=== PATIENT | female | born 1965 | race Caucasian/White ===

== ENCOUNTER → 2017-08-20 | Outpatient (CLI) | payer OTHER ==
[~2017-08-20] MED LIST: AMBIEN10 M1 PO; AMBIEN10 MG PO; ATIVAN1 MG PO; BACTRIM DS 8001 TA1 PO; BENADRYL25 MG PO; CIPRO500 MG PO; CYMBALTA60 MG PO; DOXYCYCLINE100 M3 PO; FEOSOL325 MG PO; LAMICTAL ODT50 MG PO; LAMICTAL25 MG PO; LAMOTRIGINE25 M1 PO; NORFLEX100 MG PO; PERCOCET 325 MG1 TA2 PO; PHENERGAN25 M3 PO; POTASSIUM CHLO20 ME3 PO; SEPTRA DS 800 M1 TAB PO; SEROQUEL300 MG PO; SEROQUEL400 MG PO; SUBOXONE 2 MG-01 TA1 SL; TIZANIDINE HCL4 MG PO; TORADOL10 MG PO
[2017-08-21 08:11] LABS: ESTRADIOL 87.4 pg/mL (.); FOLLICLE STIMULATING HORMONE 6.3 mIU/mL (.)
== END | disposition home or self-care (01) ==
LOC: LAB 11:47
PROVIDERS: Obstetrics & Gynecology
DX: Z12.12 Encounter for screening for malignant neoplasm of rectum (principal); N95.1 Menopausal and female climacteric states

== ENCOUNTER 2017-12-22 10:02 | Inpatient (IN) | payer OTHER ==
[~2017-12-22] VITALS: Ht 160 cm; Wt 66.7 kg
--- NOTE | ~2017-12-22 | PR ---
[place], [place] PROGRESS NOTE [id number] UNIT #: [id number] ROOM: 427 DOCTOR: MILLI WILSON MD,ADOLFO BIRTHDATE: [birth year] DOS: 12/24/2017 SUBJECTIVE: The patient was noted comfortable today. The IV access was established on the patient yesterday. She has been still noted with pain described in the chest. Denies symptoms of hemoptysis. Denies any symptoms of abdominal pain, nausea, vomiting, headache, or diarrhea. The withdrawal symptoms in the patient from the narcotics seemed to be better today. The remaining systems were reviewed of the patient, they were noted all negative. OBJECTIVE: VITAL SIGNS: Temperature remains normal, previous noted 99 degrees Fahrenheit early on 12/23/2017. respiratory 20-22, heart rate of 114-107 with sinus tachycardia, blood pressure 103/53-120/56. Pulse oxygen saturation of the patient noted on nasal cannula was 98% saturation. HEENT: Head was atraumatic. Eyes nonicterus. NECK: Supple. CARDIOVASCULAR: S1, S2 audible. LUNGS: Decreased breath sounds in the patient's left chest. Remaining lungs were noted clear. There was no wheezing. ABDOMEN: Flat, soft, nontender. EXTREMITIES: Without any acute edema. CENTRAL NERVOUS SYSTEM: No focal deficit. Cranial nerves 2-12 intact. MUSCULOSKELETAL: Without any acute deformities. LABORATORY DATA: CMP today, glucose 104, BUN normal, creatinine was normal. Phosphorus 1.9. CBC of this morning, WBC count 21.8, hemoglobin 9.4, hematocrit 28.8, platelet count 414,000, 95% segmented neutrophils. PH of the patient's pleural fluid, which was removed today was 6.63. The cell count differential of the patient noted with WBC count of 6396, 6000 RBCs, 93% segmented neutrophils. Chemistry, glucose noted less than 1, protein 4.5, LDH of 944. Cholesterol of 87. Triglyceride of 43. Albumin 1.7. IMAGING STUDIES: The echocardiogram that was done today on this patient was reviewed and dictated by Dr. Johnson. Echocardiogram of the patient described with left ventricular ejection fraction 60-65%. 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 Trace mitral regurgitation was also reported. There was no evidence of vegetation described. SHAAN was suggested for the patient for further assessment. IMPRESSION: 1. The patient who has been currently noted with findings suggestive of severe complicated pleural fluid, possibility of empyema would be considered. The patient has acute pneumonia involving the left side. 2. 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 3. Past history of nicotine use. 4. History of narcotic medication dependence as well. 5. Anemia of chronic disease. 6. Leukocytosis secondary to empyema or pneumonia. [place], [place] PROGRESS NOTE NAME: DIONY CHASE UNIT #: [id number] ROOM: 427 DOCTOR: ADOLFO TESFAYE MD BIRTHDATE: [birth year] PLAN OF MANAGEMENT: The patient has been currently getting IV Levaquin that will be continued. Continuation of bronchodilator. Thoracentesis completed with over 900 mL of cloudy fluid drained from the pleural space with pending Gram stain and culture. The patient will be transferred to another hospital for further medical management of the patient for the current loculated pleural fluid, suspected empyema with complicated pleural fluid. Continuation of the pain medication of the patient especially non-narcotics. Continuation of bronchodilators and oxygen supplementation and other therapies as in progress. The patient was agreeable for the transfer to another facility. The primary care attending of the patient has been contacted. I did speak with the Thoracic Surgery staff at [facility] for this patient's surgical intervention. He was agreeable to the admission to [facility] and to perform the surgery for the patient. Further workup of the patient's current abnormal aortic valve assessment needs to be done with the transesophageal echocardiogram to rule out fibroelastoma and other. Other supportive therapy, plan of management. No other changes immediately in the treatment will be needed at the present time. Past, family, and social history of the patient reviewed from the previous note remains unchanged. Review of systems of the patient essentially noted negative other than specified in the history of present illness. ADOLFO MORLEY MD CM:PNTRANS [id number] ADOLFO WILSON MD 12/25/17 0015 interface
--- NOTE | ~2017-12-22 | CON ---
[place], [place] RE[facility] CON[facility]ULTATION [id number] UNIT #: [id number] ROOM: 427 DOCTOR: MILLI WILSON MDADOLFO BIRTHDATE: [birth year] DOS: 12/23/2017 PULMONARY CONSULTATION, EVALUATION AND MANAGEMENT CONSULTATION REQUESTED BY: Hospitalist services. REASON FOR CONSULTATION: Consultation done for assessment of the current left pleural fluid and the chest pain. HISTORY OF PRESENT ILLNESS: This is a 52-year-old female who has been admitted to the hospital for the detoxification program in the [facility]. The patient reported with significant symptoms of withdrawal occurring yesterday. She has been hospitalized, also complaining of pain in the right side of the chest. The patient has been noted he has a longstanding heroin use. The last time she has used the heroin, reported snorting last Thursday. The patient is currently noted complaining of pain. She apparently appeared to have lost significant weight. The patient was known to me from the previous assessment. She does have some symptoms of coughing, which was noted nonproductive. Chest pain is described moderate to severe nonradiating in the left side of the chest for the past few days. The patient denies symptoms of hemoptysis with that. Denies symptoms of wheezing. REVIEW OF SYSTEMS: CONSTITUTIONAL: Fatigue and tiredness reported. She was not sure about symptoms of fever or chills. EYES: Denies any burning, redness, discharge or pain. EARS, NOSE, AND THROAT: Denies sore throat, hoarseness, otalgia, postnasal drainage or epistaxis. CARDIOVASCULAR: Denies anginal pain, edema, pain of the lower extremities. GASTROINTESTINAL: Denies dysphagia, nausea, vomiting, diarrhea, abdominal pain, hematemesis, melena, or hematochezia. GENITOURINARY: Denies symptoms of dysphagia. The patient lost about 40 pounds of body weight in the past several weeks. MUSCULOSKELETAL: Aches and pain described, most likely related to current withdrawal from the heroin dependence. CENTRAL NERVOUS SYSTEM: Denies any focal neurologic deficit. Denies symptoms of diplopia, headache or migraine headache. History of seizures known previously, but no active seizure reported in the last few days. Remaining systems were reviewed. They were noted all negative. PAST MEDICAL HISTORY: 1. Noted with chronic alcohol dependency. The patient previously used heroin with multiple abscesses of the skin, which has been treated with I and D, currently noted snorting heroin. 2. History of hepatitis C. 3. Past history of seizure reported previously as well. 4. History of anemia of chronic disease. PAST SURGICAL HISTORY: [place], [place] REPORT OF CONSULTATION NAME: DIONY CHASE UNIT #: [id number] ROOM: 427 DOCTOR: ADOLFO TESFAYE MD BIRTHDATE: [birth year] 1. Tubal ligation. 2. Bibi-en-Y bypass surgery several years ago. 3. History of cholecystectomy. 4. I and D of skin abscesses in the past. SOCIAL HISTORY: The patient was denying any tobacco use or alcohol use. The patient has been noted dependence on the narcotic medication in the form of heroin. FAMILY HISTORY: The patient's father passed of complication related lung cancer. Mother with history of lymphoma. HOME MEDICATIONS: The patient reported use of Ambien, Zanaflex and Seroquel. DRUG ALLERGIES: No known drug allergies. PHYSICAL EXAMINATION: GENERAL: This is a 52-year-old female who has been currently noted at this time with signs of withdrawal and distress from the past heroin use. Height of 5 feet 3 inches, weight 147, BMI 26. VITAL SIGNS: The temperature 99.4 degree Fahrenheit, normal temperature, respiratory rate 20, heart rate of 100-97, blood pressure 136/100-110/68. Pulse oxygen saturation on room air was 98% saturation. HEENT: Head was atraumatic. Oral mucosa was moist. NECK: Supple. CARDIOVASCULAR: S1, S2 is audible. LUNGS: Noted without any wheezing. Decreased breath sounds and absent breath sounds in the left lower chest. ABDOMEN: Soft, flat, nontender. EXTREMITIES: Without any edema, clubbing, cyanosis or any obvious abscesses or rashes. MUSCULOSKELETAL: No deformities. CENTRAL NERVOUS SYSTEM: Noted nonfocal and intact. VISIBLE SKIN: No lesions or rashes or ulcers. LABORATORY DATA: CBC that was done yesterday on admission, WBC count 12.6, hemoglobin 9.2, hematocrit 28.6, platelet count 439,000. PT/PTT yesterday were noted as normal. CMP yesterday on admission, potassium 2.8. Remaining electrolytes normal. The liver function tests normal except albumin 2.3. The CMP of this morning repeated was noted with potassium of 2.9, BUN and creatinine remains normal. Albumin remains low. CBC this morning, WBC count 19.5, hemoglobin 10.2, hematocrit 31.0, platelet count 442,000, 94% segmented neutrophils. Lactic acid was 1.2. C-reactive protein was severely elevated 25.50. ESR noted as 92. The chest x-ray was noted with a moderate-sized left pleural fluid was also noted. CT scan of the chest, which was done without contrast was personally reviewed for this patient shows moderate-sized left pleural fluid noted with area of compression atelectasis, possibility of infiltration was also considered. Right lung was noted discoid atelectasis in the right lung base. There was no cross visible lymphadenopathy, but the lack of the IV contrast does limit the mediastinal assessment. [place], [place] REPORT OF CONSULTATION NAME: DIONY CHASE UNIT #: [id number] ROOM: 427 DOCTOR: KRISTA TESFAYE MDM BIRTHDATE: [birth year] IMPRESSION: 1. The patient has been currently admitted to the hospital noted withdrawal from the past heroin use. Also noted current pleural fluid with weight loss and leukocytosis. The etiology of the patient to be considered as acute pneumonia with the pleural fluid related to that versus rule out malignancy as well in the differential diagnosis. 2. The patient was noted poor peripheral venous access at this time and tried to be established an intravenous line at this time by the nursing staff. 3. History of chronic dependence heroin, possibly to aspiration resulting in current pneumonia cannot be excluded. 4. History of hepatitis C as well. PLAN OF MANAGEMENT: At this time, the patient would be continued on the antibiotic for community-acquired pneumonia. Blood culture to be obtained for this patient as soon as the intravenous line was established. Thoracentesis will be done in the first step for sampling of the pleural fluid for this patient initially. Depending on the analysis of pleural fluid, further determination will be done. New intervention if necessary including consideration for video-assisted thoracoscopy. Medical management of withdrawal from the heroin and narcotic will be continued under the [facility] for the patient has already been done by the primary care attending. Usual care. All other supportive therapy, plan of management and care. Further change in treatment will be done based on progression of the illness. Thanks for allowing me to participate in the care of this patient. ADOLFO MORLEY MD CM:CONSTR:REPORT OF CONSULTATION [id number] 12/24/17 0506 interface
--- NOTE | ~2017-12-22 | PROC NOTE ---
[place], [place] PROCEDURE NOTE NAME: DIONY CHASE UNIT #: [id number] ROOM: 427 DOCTOR: MILLI WILSON MD,ADOLFO BIRTHDATE: [birth year] DOS: 12/24/2017 PREOPERATIVE DIAGNOSIS: The patient with multiloculated pleural fluid. POSTOPERATIVE DIAGNOSIS: Removal of about 900 mL of cloudy pleural fluid, cloudy pleural fluid for the patient was removed. PROCEDURE: Thoracentesis and outpatient ultrasound guidance. PROCEDURE DESCRIPTION: Informed consent obtained. Ultrasound of the chest was personally performed, multiloculated pleural fluid was noted, large pocket of fluid was identified in right posterior lower chest wall port site of thoracentesis. Skin was cleaned with chlorhexidine solution. 1% lidocaine was administered in the skin and intercostal space. During administration of local anesthetic, a small amount of fluid was aspirated. After that small incision given in the skin, [place] thoracentesis catheter introduced through the incision into the left pleural space without any difficulty. A total of 900 mL of pleural fluid was obtained for the patient, which was sent to all the necessary testing including for the pH assessment. The procedure was well tolerated by the patient without any complication. The chest x-ray of the patient that was performed post-procedure was reviewed as well. Persistent loculated pleural fluid for the patient with incomplete re-expansion of the lung. There was no evidence of pneumothorax. The finding is not unexpected for this patient at this time based on the current pleural fluid analysis. ADOLFO MORLEY MD CM:PROCNOTE:PROCEDURE NOTE [phone] ADOLFO WILSON MD
[2017-12-22] MEDS ORDERED: VISTARIL50 MG PO (10:44)
[2017-12-22] MEDS ORDERED: ZANAFLEX4 M1 PO (10:45)
[2017-12-22] MEDS ORDERED: SEROQUEL400 M1 PO (10:46)
[2017-12-22 10:50] VITALS: BP 124/74
[2017-12-22] MEDS ORDERED: AMBIEN10 M1 PO (10:57)
[2017-12-22 11:07] VITALS: BP 124/74
[2017-12-22 11:59] LABS: BASO % 0.2 % (0.0-1.0); EOS # 0.1 10*3/uL (0.0-0.4); EOS % 1.1 % (1.0-4.0); HEMATOCRIT 28.6 % (37.0-47.0); HEMOGLOBIN 9.2 g/dl (12.0-16.0); LYMPH # 0.8 10*3/uL (1.3-4.4); LYMPH % 6.4 % (27.0-41.0); MEAN CELL VOLUME 82.4 fl (81.0-99.0); MEAN CORPUSCULAR HGB 26.5 pg (27.0-31.0); MEAN CORPUSCULAR HGB CONC 32.2 g/dl (33.0-37.0); MEAN PLATELET VOLUME 8.8 fl (9.6-12.3); MONO # 0.5 10*3/uL (0.1-1.0); MONO % 4.1 % (3.0-9.0); NEUT % 87.9 % (47.0-73.0); PLATELET COUNT AUTOMATED 439 10*3/uL (130-400); RED BLOOD COUNT 3.47 10*6/uL (4.10-5.10); RED CELL DISTRI WIDTH 13.3 % (0-14.5); RETICULOCYTE % 1.39 % (0.50-2.50); WHITE BLOOD COUNT 12.6 10*3/uL (4.8-10.8)
[2017-12-22 12:06] LABS: ACT PARTIAL THROMBO TIME 29.5 SECONDS (20.8-31.5)
[2017-12-22 12:19] LABS: ALBUMIN 2.3 gm/dl (3.1-4.5); ALKALINE PHOSPHATASE 65 U/L (45-117); BUN 13 mg/dl (7-24); CHLORIDE 104 mmol/L (98-107); CREATININE 0.66 mg/dL (0.55-1.02); IRON 13 ug/dL (50-170); PHOSPHOROUS 2.8 mg/dL (2.5-4.9); POTASSIUM 2.8 mmol/L (3.5-5.1); SGOT/AST 7 IU/L (3-35); SGPT/ALT 10 U/L (12-78); SODIUM 140 mmol/L (136-145); TOTAL PROTEIN 7.1 gm/dL (6.4-8.2)
[2017-12-22 12:24] LABS: THYROID STIM HORMONE (HS) 0.262 uIU/ml (0.358-4.75); TOTAL IRON BINDING CAPACITY 214 ug/dl (250-450)
[2017-12-22 13:03] LABS: FERRITIN 75.6 ng/mL (10.0-291.0)
[2017-12-22 13:37] LABS: VITAMIN D, 25-HYDROXY 4.6 ng/mL (30-100)
[2017-12-22 16:00] VITALS: BP 108/57
[2017-12-22 20:00] VITALS: BP 136/100
[2017-12-22 20:15] VITALS: BP 136/86
[2017-12-23] VITALS: BP 106/46
[2017-12-23 04:00] VITALS: BP 106/68
[2017-12-23 06:58] LABS: HEMOGLOBIN 10.2 g/dl (12.0-16.0); MEAN CELL VOLUME 82.4 fl (81.0-99.0); MEAN CORPUSCULAR HGB 27.1 pg (27.0-31.0); MEAN CORPUSCULAR HGB CONC 32.9 g/dl (33.0-37.0); MEAN PLATELET VOLUME 8.9 fl (9.6-12.3); PLATELET COUNT AUTOMATED 442 10*3/uL (130-400); RED BLOOD COUNT 3.76 10*6/uL (4.10-5.10); RED CELL DISTRI WIDTH 13.5 % (0-14.5); WHITE BLOOD COUNT 19.5 10*3/uL (4.8-10.8)
[2017-12-23 07:15] LABS: BUN 11 mg/dl (7-24); CHLORIDE 102 mmol/L (98-107); CHOLESTEROL 131 mg/dL (<200); CREATININE 0.67 mg/dL (0.55-1.02); POTASSIUM 2.9 mmol/L (3.5-5.1); SGOT/AST 6 IU/L (3-35); SGPT/ALT 7 U/L (12-78); SODIUM 137 mmol/L (136-145); TOTAL PROTEIN 6.6 gm/dL (6.4-8.2); TRIGLYCERIDES 74 mg/dl (<150); VLDL CHOLESTEROL 15 mg/dL (6-40)
[2017-12-23 07:16] LABS: ALKALINE PHOSPHATASE 61 U/L (45-117); HDL CHOLESTEROL 38 mg/dl (40-60); LDL CHOLESTEROL 78 mg/dL (9-159)
[2017-12-23 07:41] LABS: TOTAL CELLS COUNTED 100 #CELLS
[2017-12-23 07:42] LABS: BURR CELLS FEW; PLATELET SUFFICIENCY HIGH (NORMAL); POLYCHROMASIA SLIGHT
[2017-12-23 07:44] VITALS: BP 110/68
[2017-12-23 12:01] VITALS: BP 112/78
[2017-12-23 16:00] VITALS: BP 116/45
[2017-12-23 20:00] VITALS: BP 125/65
[2017-12-24] VITALS: BP 103/53
[2017-12-24 06:39] LABS: HEMATOCRIT 28.8 % (37.0-47.0); HEMOGLOBIN 9.4 g/dl (12.0-16.0); MEAN CELL VOLUME 83.5 fl (81.0-99.0); MEAN CORPUSCULAR HGB 27.2 pg (27.0-31.0); MEAN CORPUSCULAR HGB CONC 32.6 g/dl (33.0-37.0); PLATELET COUNT AUTOMATED 414 10*3/uL (130-400); RED BLOOD COUNT 3.45 10*6/uL (4.10-5.10); RED CELL DISTRI WIDTH 13.9 % (0-14.5); WHITE BLOOD COUNT 21.8 10*3/uL (4.8-10.8)
[2017-12-24 06:59] LABS: ALBUMIN 1.7 gm/dl (3.1-4.5); BUN 10 mg/dl (7-24); CHLORIDE 104 mmol/L (98-107); POTASSIUM 3.8 mmol/L (3.5-5.1); SODIUM 138 mmol/L (136-145)
[2017-12-24 07:02] LABS: ALKALINE PHOSPHATASE 83 U/L (45-117); CREATININE 0.67 mg/dL (0.55-1.02); PHOSPHOROUS 1.9 mg/dL (2.5-4.9); SGOT/AST 8 IU/L (3-35); SGPT/ALT 9 U/L (12-78); TOTAL PROTEIN 5.9 gm/dL (6.4-8.2)
[2017-12-24 07:27] LABS: BASOPHILS 1 % (0-1); PLATELET SUFFICIENCY NORMAL (NORMAL); POLYCHROMASIA SLIGHT; TOTAL CELLS COUNTED 100 #CELLS
[2017-12-24 08:00] VITALS: BP 128/56
[2017-12-24 11:26] LABS: BODY FLUID WBC 6396 /uL
[2017-12-24 11:27] LABS: BF LYMPHOCYTES 1 %; BF MACROPHAGES 5 %; BF NEUTROPHILS 93 %
[2017-12-24 12:00] VITALS: BP 110/50
[2017-12-24 16:00] VITALS: BP 112/48
== END 2017-12-24 18:34 | disposition short-term general hospital (02) | DRG 871 ==
LOC: 4E 10:02
PROVIDERS: Internal Medicine Critical Care Medicine; Registered Nurse
PROC: 0W9B3ZZ Drainage of Left Pleural Cavity, Percutaneous Approach (ICD-10-PCS; principal; 2017-12-24)
DX: A41.9 Sepsis, unspecified organism (principal); E43 Unspecified severe protein-calorie malnutrition; J96.01 Acute respiratory failure with hypoxia; J90 Pleural effusion, not elsewhere classified; J18.9 Pneumonia, unspecified organism; F11.23 Opioid dependence with withdrawal; D50.9 Iron deficiency anemia, unspecified; R65.20 Severe sepsis without septic shock; E87.6 Hypokalemia; E83.51 Hypocalcemia; R73.9 Hyperglycemia, unspecified; D63.8 Anemia in other chronic diseases classified elsewhere; F41.9 Anxiety disorder, unspecified; F32.9 Major depressive disorder, single episode, unspecified; Z87.891 Personal history of nicotine dependence; Z86.19 Personal history of other infectious and parasitic diseases; Z85.118 Personal history of other malignant neoplasm of bronchus and lung; Z85.72 Personal history of non-Hodgkin lymphomas; Z79.899 Other long term (current) drug therapy; Z98.51 Tubal ligation status; Z90.49 Acquired absence of other specified parts of digestive tract; Z68.26 Body mass index [BMI] 26.0-26.9, adult

== ENCOUNTER 2018-01-13 07:54 | Emergency (ER) | payer OTHER ==
[~2018-01-13] VITALS: Wt 65.3 kg
[~2018-01-13 07:54] MED LIST changes: +SEROQUEL400 M1 PO; +VISTARIL50 MG PO; +ZANAFLEX4 M1 PO
[2018-01-13 08:37] LABS: BASO % 0.5 % (0.0-1.0); EOS # 0.3 10*3/uL (0.0-0.4); EOS % 3.9 % (1.0-4.0); HEMATOCRIT 29.6 % (37.0-47.0); HEMOGLOBIN 9.1 g/dl (12.0-16.0); LYMPH # 1.7 10*3/uL (1.3-4.4); LYMPH % 21.1 % (27.0-41.0); MEAN CELL VOLUME 85.5 fl (81.0-99.0); MEAN CORPUSCULAR HGB 26.3 pg (27.0-31.0); MEAN CORPUSCULAR HGB CONC 30.7 g/dl (33.0-37.0); MEAN PLATELET VOLUME 9.5 fl (9.6-12.3); MONO # 0.5 10*3/uL (0.1-1.0); MONO % 6.3 % (3.0-9.0); NEUT # 5.4 10*3/uL (2.3-7.9); NEUT % 67.8 % (47.0-73.0); PLATELET COUNT AUTOMATED 541 10*3/uL (130-400); RED BLOOD COUNT 3.46 10*6/uL (4.10-5.10); RED CELL DISTRI WIDTH 15.2 % (0-14.5)
[2018-01-13 08:46] LABS: ACT PARTIAL THROMBO TIME 29.1 SECONDS (20.8-31.5); INTERNATIONAL NORM RATIO 1.1 (2.0-3.5)
[2018-01-13 09:00] LABS: ALBUMIN 2.1 gm/dl (3.1-4.5); ALKALINE PHOSPHATASE 85 U/L (45-117); BUN 6 mg/dl (7-24); CHLORIDE 105 mmol/L (98-107); POTASSIUM 3.1 mmol/L (3.5-5.1); SGOT/AST 15 IU/L (3-35); SGPT/ALT 17 U/L (12-78); SODIUM 141 mmol/L (136-145); TOTAL PROTEIN 7.1 gm/dL (6.4-8.2)
[2018-01-13 09:01] LABS: TROPONIN I < 0.015 ng/ml (<0.045)
[2018-01-13 09:02] LABS: ACETAMINOPHEN (TYLENOL) < 2.0 ug/ml (10-30); ETHYL ALCOHOL < 3.0 mg/dl (<3)
[2018-01-13] MEDS ORDERED: AUGMENTIN 875875 MG PO (09:05)
[2018-01-13 09:08] LABS: BILIRUBIN NEGATIVE (NEGATIVE); BLOOD TRACE-INTACT (NEGATIVE); CLARITY CLOUDY (CLEAR); COLOR YELLOW (YELLOW); GLUCOSE NEGATIVE (NEGATIVE); KETONE NEGATIVE (NEGATIVE); LEUKO ESTERASE NEGATIVE (NEGATIVE); NITRITE NEGATIVE (NEGATIVE); PH 5.5 (5.0-9.0); SPECIFIC GRAVITY >= 1.030 (1.005-1.030); UROBILINOGEN 0.2 E.U./dl (0.2-1.0)
[2018-01-13 09:24] LABS: URINE AMPHETAMINES < 1000 (1000ng/ml); URINE BARBITURATES > 200 (200ng/ml); URINE BENZODIAZEPINES < 200 (200ng/ml); URINE CANNABINOIDS (THC) < 50 (50ng/ml); URINE COCAINE < 300 (300ng/ml); URINE METHADONE < 300 (300ng/ml); URINE OPIATES > 300 (300ng/ml)
[2018-01-13 09:35] LABS: BACTERIA 2+; MUCOUS 1+
[2018-01-13 09:36] LABS: CALCIUM OXALATE CRYSTALS TRACE
[2018-01-13 09:41] LABS: URINE PHENCYCLIDINE < 25 (25ng/ml)
== END 2018-01-13 09:44 ==
LOC: ED 07:54
PROVIDERS: Emergency Medicine
DX: T40.601A Poisoning by unspecified narcotics, accidental (unintentional), initial encounter (principal); G40.909 Epilepsy, unspecified, not intractable, without status epilepticus; D64.9 Anemia, unspecified; E87.6 Hypokalemia; J90 Pleural effusion, not elsewhere classified; D47.3 Essential (hemorrhagic) thrombocythemia; Z98.51 Tubal ligation status; Z90.49 Acquired absence of other specified parts of digestive tract; Z98.84 Bariatric surgery status; Z98.890 Other specified postprocedural states; Y92.9 Unspecified place or not applicable

== ENCOUNTER → 2018-04-16 | Outpatient (CLI) | payer OTHER ==
[~2018-04-16] MED LIST changes: +AUGMENTIN 875875 MG PO; +CLINDAMYCIN150 MG PO; +NEURONTIN400 MG PO
== END | disposition home or self-care (01) ==
LOC: RAD 07:54
DX: M16.11 Unilateral primary osteoarthritis, right hip (principal); J43.9 Emphysema, unspecified; R07.89 Other chest pain

== ENCOUNTER 2018-05-19 00:13 | Emergency (ER) | payer OTHER ==
[~2018-05-19] VITALS: Ht 167.6 cm; Wt 56.7 kg
[~2018-05-19 00:13] MED LIST changes: -CLINDAMYCIN150 MG PO; -NEURONTIN400 MG PO
[2018-05-19] MEDS ORDERED: NEURONTIN400 MG PO (00:32)
[2018-05-19 00:51] LABS: BASO % 0.3 % (0.0-1.0); EOS # 0.1 10*3/uL (0.0-0.4); EOS % 0.7 % (1.0-4.0); HEMATOCRIT 35.3 % (37.0-47.0); HEMOGLOBIN 11.7 g/dl (12.0-16.0); LYMPH # 1.3 10*3/uL (1.3-4.4); MEAN CELL VOLUME 86.9 fl (81.0-99.0); MEAN CORPUSCULAR HGB 28.8 pg (27.0-31.0); MEAN CORPUSCULAR HGB CONC 33.1 g/dl (33.0-37.0); MEAN PLATELET VOLUME 10.4 fl (9.6-12.3); MONO # 0.7 10*3/uL (0.1-1.0); MONO % 6.5 % (3.0-9.0); NEUT # 8.1 10*3/uL (2.3-7.9); NEUT % 79.2 % (47.0-73.0); PLATELET COUNT AUTOMATED 288 10*3/uL (130-400); RED BLOOD COUNT 4.06 10*6/uL (4.10-5.10); RED CELL DISTRI WIDTH 13.4 % (0-14.5); WHITE BLOOD COUNT 10.2 10*3/uL (4.8-10.8)
[2018-05-19 01:05] LABS: ALBUMIN 3.4 gm/dl (3.1-4.5); ALKALINE PHOSPHATASE 74 U/L (45-117); BUN 15 mg/dl (7-24); CHLORIDE 104 mmol/L (98-107); CREATININE 1.01 mg/dL (0.55-1.02); POTASSIUM 3.3 mmol/L (3.5-5.1); SGOT/AST 7 IU/L (3-35); SGPT/ALT 17 U/L (12-78); SODIUM 139 mmol/L (136-145); TOTAL PROTEIN 7.7 gm/dL (6.4-8.2)
[2018-05-19] MEDS ORDERED: CLINDAMYCIN150 MG PO (01:15)
== END 2018-05-19 01:57 | disposition home or self-care (01) ==
LOC: ED 00:13
PROVIDERS: Student in an Organized Health Care Education/Training Program
DX: L02.414 Cutaneous abscess of left upper limb (principal); F11.10 Opioid abuse, uncomplicated; Z98.51 Tubal ligation status; Z90.49 Acquired absence of other specified parts of digestive tract; Z98.84 Bariatric surgery status; Z98.890 Other specified postprocedural states; Z96.642 Presence of left artificial hip joint

== ENCOUNTER 2018-07-19 09:08 | Inpatient (IN) | payer OTHER ==
[~2018-07-19] VITALS: Ht 160 cm; Wt 59.0 kg
[~2018-07-19 09:08] MED LIST changes: +CLINDAMYCIN150 MG PO; +NEURONTIN400 MG PO
[2018-07-19 09:09] VITALS: BP 112/68
[2018-07-19 09:56] LABS: BILIRUBIN NEGATIVE (NEGATIVE); BLOOD 2+ (NEGATIVE); CLARITY SL CLOUDY (CLEAR); COLOR YELLOW (YELLOW); GLUCOSE NEGATIVE (NEGATIVE); KETONE NEGATIVE (NEGATIVE); LEUKO ESTERASE TRACE (NEGATIVE); NITRITE NEGATIVE (NEGATIVE); SPECIFIC GRAVITY 1.025 (1.005-1.030); UROBILINOGEN 0.2 E.U./dl (0.2-1.0)
[2018-07-19 10:02] LABS: URINE AMPHETAMINES < 1000 (1000ng/ml); URINE BARBITURATES < 200 (200ng/ml); URINE BENZODIAZEPINES < 200 (200ng/ml); URINE CANNABINOIDS (THC) < 50 (50ng/ml); URINE COCAINE < 300 (300ng/ml); URINE METHADONE < 300 (300ng/ml); URINE OPIATES < 300 (300ng/ml)
[2018-07-19 10:03] LABS: URINE PHENCYCLIDINE < 25 (25ng/ml)
[2018-07-19 10:03] LABS: HEMATOCRIT 38.4 % (37.0-47.0); HEMOGLOBIN 12.5 g/dl (12.0-16.0); MEAN CELL VOLUME 87.9 fl (81.0-99.0); MEAN CORPUSCULAR HGB 28.6 pg (27.0-31.0); MEAN CORPUSCULAR HGB CONC 32.6 g/dl (33.0-37.0); MEAN PLATELET VOLUME 10.3 fl (9.6-12.3); PLATELET COUNT AUTOMATED 295 10*3/uL (130-400); RED BLOOD COUNT 4.37 10*6/uL (4.10-5.10); RED CELL DISTRI WIDTH 12.5 % (0-14.5); WHITE BLOOD COUNT 9.8 10*3/uL (4.8-10.8)
[2018-07-19 10:15] LABS: ALBUMIN 3.4 gm/dl (3.1-4.5); ALKALINE PHOSPHATASE 58 U/L (45-117); BUN 13 mg/dl (7-24); CHLORIDE 104 mmol/L (98-107); CREATININE 0.85 mg/dL (0.55-1.02); POTASSIUM 4.1 mmol/L (3.5-5.1); SGOT/AST 18 IU/L (3-35); SGPT/ALT 19 U/L (12-78); SODIUM 136 mmol/L (136-145); TOTAL PROTEIN 7.8 gm/dL (6.4-8.2)
[2018-07-19 10:16] LABS: ACETAMINOPHEN (TYLENOL) 3.2 ug/ml (10-30); ETHYL ALCOHOL < 3.0 mg/dl (<3)
[2018-07-19 10:32] LABS: PLATELET SUFFICIENCY NORMAL (NORMAL); TOTAL CELLS COUNTED 100 #CELLS
[2018-07-19 10:37] LABS: BACTERIA 2+; RBC 21-30 rbc/hpf (0-2)
[2018-07-19 11:05] VITALS: BP 107/60
[2018-07-19 11:18] VITALS: BP 137/58
[2018-07-19 11:20] VITALS: BP 137/58
[2018-07-19] MEDS ORDERED: ZANAFLEX2 M1 PO (12:53)
[2018-07-19 16:00] VITALS: BP 127/58
[2018-07-19 20:00] VITALS: BP 114/65
[2018-07-20] VITALS: BP 92/62
[2018-07-20 06:02] LABS: BASO % 0.3 % (0.0-1.0); EOS % 0.4 % (1.0-4.0); HEMATOCRIT 32.7 % (37.0-47.0); HEMOGLOBIN 10.6 g/dl (12.0-16.0); LYMPH # 0.7 10*3/uL (1.3-4.4); LYMPH % 8.8 % (27.0-41.0); MEAN CELL VOLUME 88.6 fl (81.0-99.0); MEAN CORPUSCULAR HGB 28.7 pg (27.0-31.0); MEAN CORPUSCULAR HGB CONC 32.4 g/dl (33.0-37.0); MEAN PLATELET VOLUME 10.1 fl (9.6-12.3); MONO # 0.4 10*3/uL (0.1-1.0); MONO % 5.2 % (3.0-9.0); NEUT # 6.8 10*3/uL (2.3-7.9); NEUT % 85.2 % (47.0-73.0); PLATELET COUNT AUTOMATED 231 10*3/uL (130-400); RED BLOOD COUNT 3.69 10*6/uL (4.10-5.10); RED CELL DISTRI WIDTH 12.7 % (0-14.5); WHITE BLOOD COUNT 7.9 10*3/uL (4.8-10.8)
[2018-07-20 06:30] LABS: BUN 13 mg/dl (7-24); CHLORIDE 109 mmol/L (98-107); CREATININE 0.67 mg/dL (0.55-1.02); PHOSPHOROUS 3.2 mg/dL (2.5-4.9); POTASSIUM 3.4 mmol/L (3.5-5.1); SODIUM 140 mmol/L (136-145)
[2018-07-20 06:37] LABS: FREE T4 0.96 ng/dl (0.76-1.46); THYROID STIM HORMONE (HS) 0.481 uIU/ml (0.358-4.75)
[2018-07-20 08:00] VITALS: BP 110/60
[2018-07-20] MEDS ORDERED: VITAMIN D31000 UNI1 PO (10:14)
[2018-07-20] MEDS ORDERED: LAMICTAL25 MG PO (10:14)
[2018-07-20 12:00] VITALS: BP 110/62
[2018-07-20 16:00] VITALS: BP 100/52
== END 2018-07-20 17:03 | disposition home or self-care (01) | DRG 101 ==
LOC: ED 09:08 → EDHOLD 10:54 → 4E 10:54
PROVIDERS: Nurse Practitioner Family; Student in an Organized Health Care Education/Training Program
DX: G40.319 Generalized idiopathic epilepsy and epileptic syndromes, intractable, without status epilepticus (principal); E44.1 Mild protein-calorie malnutrition; D72.810 Lymphocytopenia; E83.41 Hypermagnesemia; R82.71 Bacteriuria; Z96.641 Presence of right artificial hip joint; F41.9 Anxiety disorder, unspecified; F32.9 Major depressive disorder, single episode, unspecified; B19.20 Unspecified viral hepatitis C without hepatic coma; G40.909 Epilepsy, unspecified, not intractable, without status epilepticus; Z79.899 Other long term (current) drug therapy; Z90.49 Acquired absence of other specified parts of digestive tract; Z98.51 Tubal ligation status; Z98.84 Bariatric surgery status; Z80.1 Family history of malignant neoplasm of trachea, bronchus and lung; Z91.19 Patient's noncompliance with other medical treatment and regimen; Z68.23 Body mass index [BMI] 23.0-23.9, adult

== ENCOUNTER 2019-12-27 08:10 | Inpatient (IN) | payer OTHER ==
[2019-12-27] VITALS (8 sets, daily range): BP systolic 96–143; BP diastolic 42–67
[~2019-12-27] VITALS: Ht 160 cm; Wt 72.1 kg
[~2019-12-27 08:10] MED LIST changes: +VITAMIN D31000 UNI1 PO; +ZANAFLEX2 M1 PO
[2019-12-27 09:18] LABS: BASO % 0.3 % (0.0-1.0); EOS % 0.2 % (1.0-4.0); HEMATOCRIT 37.1 % (37.0-47.0); HEMOGLOBIN 11.7 g/dl (12.0-16.0); LYMPH # 0.4 10*3/uL (1.3-4.4); MEAN CELL VOLUME 89.6 fl (81.0-99.0); MEAN CORPUSCULAR HGB 28.3 pg (27.0-31.0); MEAN CORPUSCULAR HGB CONC 31.5 g/dl (33.0-37.0); MEAN PLATELET VOLUME 10.7 fl (9.6-12.3); MONO # 0.1 10*3/uL (0.1-1.0); MONO % 2.4 % (3.0-9.0); NEUT # 5.2 10*3/uL (2.3-7.9); NEUT % 89.8 % (47.0-73.0); PLATELET COUNT AUTOMATED 197 10*3/uL (130-400); RED BLOOD COUNT 4.14 10*6/uL (4.10-5.10); RED CELL DISTRI WIDTH 13.4 % (0-14.5); WHITE BLOOD COUNT 5.8 10*3/uL (4.8-10.8)
[2019-12-27 09:27] LABS: ACT PARTIAL THROMBO TIME 25.2 SECONDS (20.0-32.1); INTERNATIONAL NORM RATIO 0.9 (2.0-3.5)
[2019-12-27 09:31] LABS: ALBUMIN 3.2 gm/dl (3.1-4.5); ALKALINE PHOSPHATASE 52 U/L (45-117); BUN 15 mg/dl (7-24); CHLORIDE 106 mmol/L (98-107); CREATININE 1.21 mg/dL (0.55-1.02); LIPASE 94 U/L (73-393); POTASSIUM 3.9 mmol/L (3.5-5.1); SGOT/AST 14 IU/L (3-35); SGPT/ALT 16 U/L (12-78); SODIUM 139 mmol/L (136-145); TOTAL PROTEIN 6.8 gm/dL (6.4-8.2)
[2019-12-27 09:32] LABS: ACETAMINOPHEN (TYLENOL) < 5.0 ug/ml (10-30); ETHYL ALCOHOL < 3.0 mg/dl (<3)
[2019-12-27 12:09] LABS: URINE AMPHETAMINES < 1000 (1000ng/ml); URINE CANNABINOIDS (THC) < 50 (50ng/ml); URINE METHADONE < 300 (300ng/ml); URINE OPIATES < 300 (300ng/ml)
[2019-12-27 12:11] LABS: URINE BARBITURATES < 200 (200ng/ml); URINE BENZODIAZEPINES < 200 (200ng/ml); URINE COCAINE < 300 (300ng/ml)
[2019-12-27 12:16] LABS: URINE PHENCYCLIDINE < 25 (25ng/ml)
[2019-12-27] MEDS ORDERED: LAMICTAL25 MG PO (12:21)
[2019-12-27] MEDS ORDERED: SUBOXONE 8 MG-1 EACH SL (12:21)
[2019-12-27] MEDS ORDERED: ZOFRAN8 M1 PO (12:23)
[2019-12-27 12:27] LABS: BILIRUBIN NEGATIVE (NEGATIVE); BLOOD 3+ (NEGATIVE); CLARITY SL CLOUDY (CLEAR); COLOR YELLOW (YELLOW); GLUCOSE NEGATIVE (NEGATIVE); KETONE NEGATIVE (NEGATIVE)
[2019-12-27 12:28] LABS: LEUKO ESTERASE NEGATIVE (NEGATIVE); NITRITE NEGATIVE (NEGATIVE); UROBILINOGEN 0.2 E.U./dl (0.2-1.0)
[2019-12-27 12:29] LABS: BACTERIA TRACE; EPITHELIAL CELLS 0-2
[2019-12-28] VITALS: BP 115/58
[2019-12-28 04:00] VITALS: BP 108/57
[2019-12-28 05:22] LABS: BUN 15 mg/dl (7-24); CHLORIDE 110 mmol/L (98-107); CREATININE 0.67 mg/dL (0.55-1.02); PHOSPHOROUS 2.5 mg/dL (2.5-4.9); POTASSIUM 3.5 mmol/L (3.5-5.1); SODIUM 140 mmol/L (136-145)
[2019-12-28 06:13] LABS: BASO % 0.5 % (0.0-1.0); EOS # 0.1 10*3/uL (0.0-0.4); EOS % 1.1 % (1.0-4.0); HEMATOCRIT 34.1 % (37.0-47.0); LYMPH # 1.2 10*3/uL (1.3-4.4); MEAN CELL VOLUME 87.9 fl (81.0-99.0); MEAN CORPUSCULAR HGB 28.4 pg (27.0-31.0); MEAN CORPUSCULAR HGB CONC 32.3 g/dl (33.0-37.0); MEAN PLATELET VOLUME 10.9 fl (9.6-12.3); MONO # 0.3 10*3/uL (0.1-1.0); MONO % 6.1 % (3.0-9.0); NEUT # 2.9 10*3/uL (2.3-7.9); NEUT % 65.1 % (47.0-73.0); PLATELET COUNT AUTOMATED 179 10*3/uL (130-400); RED BLOOD COUNT 3.88 10*6/uL (4.10-5.10); RED CELL DISTRI WIDTH 13.3 % (0-14.5); WHITE BLOOD COUNT 4.4 10*3/uL (4.8-10.8)
[2019-12-28 07:39] LABS: VITAMIN D, 25-HYDROXY 19.8 ng/mL (30-100)
[2019-12-28 08:00] VITALS: BP 102/53
[2019-12-28 12:00] VITALS: BP 118/64
[2019-12-28] MEDS ORDERED: ROZEREM8 MG PO (13:51)
[2019-12-28 16:00] VITALS: BP 99/66
[2019-12-28 20:00] VITALS: BP 104/45
[2019-12-29] VITALS: BP 94/43
[2019-12-29 08:00] VITALS: BP 102/66
[2019-12-29 12:00] VITALS: BP 90/42
[2019-12-29 16:00] VITALS: BP 95/43
[2019-12-29 20:00] VITALS: BP 108/66
[2019-12-30] VITALS: BP 102/50
[2019-12-30] MEDS ORDERED: KEPPRA500 MG PO (10:08)
[2019-12-30] MEDS ORDERED: VITAMIN B125000 MCG SL (11:48)
== END 2019-12-30 12:22 | disposition home or self-care (01) | DRG 53 ==
LOC: ED 08:10 → ICCU 10:08 → EDHOLD 10:08 → 4E 10:08 → ICCU 10:20 → 4E 12-28 18:38
PROVIDERS: Family Medicine; Internal Medicine; ADMIT Internal Medicine
DX: G40.909 Epilepsy, unspecified, not intractable, without status epilepticus (principal); N17.0 Acute kidney failure with tubular necrosis; E87.2 Acidosis; B18.2 Chronic viral hepatitis C; R00.0 Tachycardia, unspecified; D64.9 Anemia, unspecified; F41.9 Anxiety disorder, unspecified; Z96.642 Presence of left artificial hip joint; I95.9 Hypotension, unspecified; Z66 Do not resuscitate; Z51.5 Encounter for palliative care; F32.9 Major depressive disorder, single episode, unspecified; E55.9 Vitamin D deficiency, unspecified; E53.8 Deficiency of other specified B group vitamins; Z98.51 Tubal ligation status; Z98.84 Bariatric surgery status; Z90.49 Acquired absence of other specified parts of digestive tract; Z80.1 Family history of malignant neoplasm of trachea, bronchus and lung; Z80.7 Family history of other malignant neoplasms of lymphoid, hematopoietic and related tissues; Z79.899 Other long term (current) drug therapy

== ENCOUNTER → 2020-03-16 | Outpatient (CLI) | payer OTHER ==
[~2020-03-16] MED LIST changes: +KEPPRA500 MG PO; +ROZEREM8 MG PO; +SUBOXONE 8 MG-1 EACH SL; +VITAMIN B125000 MCG SL; +ZOFRAN8 M1 PO
== END | disposition home or self-care (01) ==
LOC: RAD 15:47
DX: N64.4 Mastodynia (principal)

== ENCOUNTER → 2020-03-29 | Outpatient (CLI) | payer OTHER | END | disposition home or self-care (01) | LOC: MAMMO 08:46 | DX: N64.4 Mastodynia (principal) ==

== ENCOUNTER 2020-09-16 17:58 | Observation (INO) | payer OTHER ==
[~2020-09-16] VITALS: Ht 160 cm; Wt 59.5 kg
[2020-09-16 17:59] VITALS: BP 111/69
[2020-09-16 18:43] LABS: BASO % 0.5 % (0.0-1.0); EOS % 0.2 % (1.0-4.0); HEMATOCRIT 35.3 % (37.0-47.0); LYMPH # 0.9 10*3/uL (1.3-4.4); LYMPH % 15.2 % (27.0-41.0); MEAN CELL VOLUME 88.3 fl (81.0-99.0); MEAN CORPUSCULAR HGB CONC 31.7 g/dl (33.0-37.0); MEAN PLATELET VOLUME 10.3 fl (9.6-12.3); MONO # 0.3 10*3/uL (0.1-1.0); MONO % 5.2 % (3.0-9.0); NEUT # 4.5 10*3/uL (2.3-7.9); NEUT % 78.6 % (47.0-73.0); PLATELET COUNT AUTOMATED 233 10*3/uL (130-400); RED CELL DISTRI WIDTH 14.6 % (0-14.5); WHITE BLOOD COUNT 5.7 10*3/uL (4.8-10.8)
[2020-09-16 18:58] LABS: ALBUMIN 3.5 gm/dl (3.1-4.5); CREATININE 1.59 mg/dL (0.55-1.02); POTASSIUM 2.9 mmol/L (3.5-5.1); TOTAL PROTEIN 7.7 gm/dL (6.4-8.2)
[2020-09-16 21:30] VITALS: BP 107/68
[2020-09-16 22:00] VITALS: BP 119/64
--- NOTE | 2020-09-16 22:00 | NUR ---
A 55, admitted to 5E, under the services of DARCIE Bower MD with a diagnosis of EXTRAPYRAMIDAL MOVEMENTS PRESENT, HYPOKALEMIA. Chief complaint is PATIENT STATES SHE FELT HER ELECTROLYTES WERE OFF AND SHE HASN'T BEEN ABLE TO KEEP ANYTHING DOWN, BUT THIS ISN'T COMPLETELY ABNORMAL FOR HER BECAUSE SHE GOT HER STOMACH STAMPLED IN THE 90'S AND THIS HAS HAPPENED SINCE THEN. Patient arrived via stretcher from ER. Monitor applied. Initial assessment completed. Vital signs taken and recorded. DARCIE BOWER MD notified of admission to the unit. Orders received. See assessment for past medical history, medications and allergies. Patient and/or family oriented to unit. [address] visitation policy reviewed. Clothing/patient valuable form completed. SONU BACON
[2020-09-16] MEDS ORDERED: LEVETIRACETAM1000 M1 PO (22:13)
[2020-09-16] MEDS ORDERED: TRINTELLIX20 MG PO (22:15)
--- NOTE | 2020-09-16 22:45 | NUR ---
SPOKE WITH REGARDING NEW ADMISSION. NEW ORDERS RECEIVED.
--- NOTE | 2020-09-16 23:45 | NUR ---
U NOTIFIED OF NEW CONSULT FOR .
[2020-09-17] VITALS: BP 98/51
[2020-09-17] MEDS ORDERED: SUBOXONE 8 MG-1 EACH SL (01:39)
--- NOTE | 2020-09-17 03:17 | NUR ---
24 HR chart check completed.
[2020-09-17 06:46] LABS: CHLORIDE 109 mmol/L (98-107); POTASSIUM 3.3 mmol/L (3.5-5.1); SODIUM 141 mmol/L (136-145)
[2020-09-17 06:52] LABS: BUN 27 mg/dl (7-24); CREATININE 0.86 mg/dL (0.55-1.02)
[2020-09-17 08:00] VITALS: BP 87/67
--- NOTE | 2020-09-17 08:00 | NUR ---
PATIENT AWAKE, ALERT AND ORIENTED. NO STATED COMPLAINTS AT THIS TIME. DENIES PAIN BUT STATES SHE IS HAVING SOME CRAMPING IN HER LOWER LEGS. RESPIRATIONS ARE EASY AND REGULAR ON ROOM AIR. NO SOB NOTED AT REST. PT IS ABLE TO REPOSITION SELF AND IS ENCOURAGED TO DO SO. EDUCATION PROVIDED ON LABS, AND PLAN OF CARE. PT INFORMED THAT URINE WAS NEED FOR CULTURE. PT STATES SHE WILL PROVIDE SOME RHEA. BED IN LOWEST LOCKED POSITION AND CALL LIGHT WITH IN REACH.
--- NOTE | 2020-09-17 08:58 | NUR ---
PT COMPLAINS OF BILATERAL LOWER LEG CRAMPS. ZARAFLEX ADMINISTERED AT THIS TIME. WILL MONITOR FOR EFFECTIVENESS.
--- NOTE | 2020-09-17 09:00 | NUR ---
Slicing Machine Tender in to talk to patient. Patient states lives at home with a nataly friend, Gustavo. There are "some" steps in the home. Physician: Dr. Farrukh Barrett Pharmacy: [facility] Home health services: none Patient's level of ADLs: INDEPENDENT Patient has working utilities: yes DME: none Follow-up physician's appointment after d/c: she prefers to make her own follow up appt after discharge Does patient want to access PORTAL?: no Discharge plan discussed with patient. She lives at home with a nataly friend who helps her. She is independent in her ADLs and ambulation. She works. Discussed home health care services or any needs at home and she declines. CM will continue to follow for any discharge planning needs. When medically stable she will be discharged to home. She states Gustavo will provide transportation on discharge. PABLO CABRERA
--- NOTE | 2020-09-17 09:45 | NUR ---
PT STATES CRAMPS ARE BETTER. ZANAFLEX CONSIDERED EFFECTIVE.
[2020-09-17 12:00] VITALS: BP 94/58
[2020-09-17 13:23] LABS: BILIRUBIN Negative (Negative); BLOOD Negative (Negative); CLARITY Clear (Clear); COLOR Yellow (Yellow); GLUCOSE Negative (Negative); KETONE Negative (Negative); LEUKO ESTERASE 1+ (Negative); NITRITE Negative (Negative); PH 5.5 (4.5-8.0); SPECIFIC GRAVITY 1.015 (1.001-1.030)
[2020-09-17 13:30] LABS: URINE AMPHETAMINES < 1000 (1000ng/ml); URINE BARBITURATES < 200 (200ng/ml); URINE BENZODIAZEPINES < 200 (200ng/ml); URINE CANNABINOIDS (THC) < 50 (50ng/ml); URINE COCAINE < 300 (300ng/ml); URINE METHADONE < 300 (300ng/ml); URINE OPIATES < 300 (300ng/ml)
[2020-09-17 13:31] LABS: URINE PHENCYCLIDINE < 25 (25ng/ml)
[2020-09-17 13:34] LABS: BACTERIA 2+; WBC 16-20 wbc/hpf (0-5)
[2020-09-17 16:00] VITALS: BP 108/51
[2020-09-17 20:00] VITALS: BP 134/83
--- NOTE | 2020-09-17 20:28 | NUR ---
24 HR chart check completed.
--- NOTE | 2020-09-17 21:00 | NUR ---
RESTING IN BED WITH NO ACUTE DISTRESS NOTED. RESPIRATIONS EASY. LUNGS DIMINISHED, CLEAR. PULSE OX 97% RA. IV FLUIDS INFUSING PER ORDER. CALL LIGHT WITHIN REACH. NO VOICED COMPLAINTS
--- NOTE | 2020-09-17 21:27 | NUR ---
ZANAFLEX PROIVIDED TO ASSIST WITH MUSCLE CRAMPS. WILL MONITOR
--- NOTE | 2020-09-17 22:10 | NUR ---
MEDS EFFECTIVE. SLEEPING. RESPIRATIONS EASY.
[2020-09-18] VITALS: BP 108/62; BP 88/57
--- NOTE | 2020-09-18 | NUR ---
SLEEPING. NO ACUTE DISTRESS NOTED. RESPIRATIONS EASY. VSS. IV FLUIDS INFUSING PER ORDER. CALL LIGHT WITHIN REACH
--- NOTE | 2020-09-18 06:00 | NUR ---
SLEPT THROUGHOUT NIGHT WITH NO DISTRESS NOTED. RESPIRATIONS EASY. IV FLUIDS MAINTAINED. CALL LIGHT WITHIN REACH. NO VOICED COMPLAINTS THIS SHIFT
[2020-09-18 06:37] LABS: BASO % 0.8 % (0.0-1.0); EOS # 0.2 10*3/uL (0.0-0.4); EOS % 4.2 % (1.0-4.0); HEMATOCRIT 32.8 % (37.0-47.0); LYMPH # 1.6 10*3/uL (1.3-4.4); LYMPH % 41.5 % (27.0-41.0); MEAN CORPUSCULAR HGB 28.4 pg (27.0-31.0); MEAN CORPUSCULAR HGB CONC 31.1 g/dl (33.0-37.0); MEAN PLATELET VOLUME 10.7 fl (9.6-12.3); MONO # 0.3 10*3/uL (0.1-1.0); MONO % 7.8 % (3.0-9.0); NEUT # 1.7 10*3/uL (2.3-7.9); NEUT % 45.4 % (47.0-73.0); PLATELET COUNT AUTOMATED 172 10*3/uL (130-400); RED BLOOD COUNT 3.59 10*6/uL (4.10-5.10); RED CELL DISTRI WIDTH 14.6 % (0-14.5); WHITE BLOOD COUNT 3.8 10*3/uL (4.8-10.8)
[2020-09-18 06:41] LABS: MEAN CELL VOLUME 91.4 fl (81.0-99.0)
[2020-09-18 07:08] LABS: CHLORIDE 115 mmol/L (98-107); CREATININE 0.63 mg/dL (0.55-1.02); IRON 56 ug/dL (50-170); SODIUM 142 mmol/L (136-145); TOTAL IRON BINDING CAPACITY 342 ug/dl (250-450)
[2020-09-18 07:17] LABS: BUN 12 mg/dl (7-24); POTASSIUM 4.9 mmol/L (3.5-5.1)
[2020-09-18 07:32] LABS: FERRITIN 17.6 ng/mL (10.0-291.0); VITAMIN D, 25-HYDROXY 28.3 ng/mL (30-100)
[2020-09-18 08:00] VITALS: BP 112/50
--- NOTE | 2020-09-18 09:00 | NUR ---
CM in to see patient. No new needs or request at this time. Discussed home health care services and she declines. CM will continue to follow for any discharge planning needs. When medically stable she will be discharged to home.
--- NOTE | 2020-09-18 09:00 | NUR ---
PT MEDICATED WITH PO ZANAFLEX PER PRN ORDER FOR C/O MUSCLE SPASMS. WILL MONITOR EFFECTIVENESS. VSS. CALL LIGHT WITHIN REACH.
--- NOTE | 2020-09-18 10:00 | NUR ---
ZANAFLEX EFFECTIVE PER PT. WILL CONTINUE TO MONITOR. CALL LIGHT WITHIN REACH.
[2020-09-18 12:00] VITALS: BP 100/46
--- NOTE | 2020-09-18 14:00 | NUR ---
PATIENT REQUESTING TO BE DISCHARGED. CALLED AT THIS TIME AND WILL BE IN TO SEE THE PATIENT WITHIN THE HOUR. PATIENT INFORMED AND VOICED UNDERSTANDING.
[2020-09-18] MEDS ORDERED: COGENTIN0.5 MG PO (14:24)
[2020-09-18] MEDS ORDERED: TRINTELLIX10 MG PEG (14:24)
[2020-09-18] MEDS ORDERED: QUETIAPINE FUM300 M1 PO (14:24)
[2020-09-18] MEDS ORDERED: MACRODANTIN100 M1 PO (14:43)
[2020-09-18] MEDS ORDERED: VITAMIN D350 MC2 GT (15:11)
--- NOTE | 2020-09-18 15:30 | NUR ---
Discharge instructions reviewed with patient/family. Patient receptive and verbalizes understanding. Follow-up care arranged. Written instructions given to patient/family. JASON WHITNEY.
== END 2020-09-18 15:59 | disposition home or self-care (01) ==
LOC: ED 17:58 → EDHOLD 20:21 → 5E 20:21
PROVIDERS: Internal Medicine Nephrology; Physician Assistant; ADMIT Internal Medicine; ATTEND Internal Medicine
DX: G40.909 Epilepsy, unspecified, not intractable, without status epilepticus (principal); E87.2 Acidosis; E55.9 Vitamin D deficiency, unspecified; E87.6 Hypokalemia; E87.8 Other disorders of electrolyte and fluid balance, not elsewhere classified; I95.9 Hypotension, unspecified; N39.0 Urinary tract infection, site not specified; E83.51 Hypocalcemia

== ENCOUNTER → 2020-11-12 | Outpatient (CLI) | payer OTHER ==
[~2020-11-12] MED LIST changes: +COGENTIN0.5 MG PO; +LEVETIRACE100 MG/1 M PO; +LEVETIRACETAM1000 M1 PO; +MACRODANTIN100 M1 PO; +PANTOPRAZOLE SO40 MG PO; +QUETIAPINE FUM300 M1 PO; +TRINTELLIX10 MG PEG; +TRINTELLIX20 MG PO; +VITAMIN D350 MC2 GT
== END | disposition home or self-care (01) ==
LOC: COVID19 07:54
PROVIDERS: ATTEND Internal Medicine
DX: Z20.822 Contact with and (suspected) exposure to COVID-19 (principal)

== ENCOUNTER 2021-01-05 17:26 | Inpatient (IN) | payer OTHER ==
[~2021-01-05] VITALS: Ht 160 cm; Wt 51.4 kg
[~2021-01-05 17:26] MED LIST changes: -LEVETIRACE100 MG/1 M PO; -PANTOPRAZOLE SO40 MG PO
[2021-01-05 18:04] LABS: BASO % 0.2 % (0.0-1.0); EOS # 0.1 10*3/uL (0.0-0.4); EOS % 1.2 % (1.0-4.0); HEMATOCRIT 34.3 % (37.0-47.0); LYMPH % 21.9 % (27.0-41.0); MEAN CELL VOLUME 89.1 fl (81.0-99.0); MEAN CORPUSCULAR HGB 28.3 pg (27.0-31.0); MEAN CORPUSCULAR HGB CONC 31.8 g/dl (33.0-37.0); MEAN PLATELET VOLUME 10.1 fl (9.6-12.3); MONO # 0.4 10*3/uL (0.1-1.0); MONO % 8.1 % (3.0-9.0); NEUT % 68.4 % (47.0-73.0); PLATELET COUNT AUTOMATED 195 10*3/uL (130-400); RED BLOOD COUNT 3.85 10*6/uL (4.10-5.10); RED CELL DISTRI WIDTH 13.1 % (0-14.5); WHITE BLOOD COUNT 4.3 10*3/uL (4.8-10.8)
[2021-01-05 18:18] LABS: ACT PARTIAL THROMBO TIME 28.2 SECONDS (20.0-32.1)
[2021-01-05 18:20] LABS: ALBUMIN 2.8 gm/dl (3.1-4.5); ALKALINE PHOSPHATASE 66 U/L (45-117); BUN 16 mg/dl (7-24); CHLORIDE 105 mmol/L (98-107); CREATININE 0.68 mg/dL (0.55-1.02); LIPASE 73 U/L (73-393); POTASSIUM 3.4 mmol/L (3.5-5.1); SGOT/AST 10 IU/L (3-35); SGPT/ALT 12 U/L (12-78); SODIUM 139 mmol/L (136-145); TOTAL PROTEIN 7.1 gm/dL (6.4-8.2)
[2021-01-05 18:23] LABS: BILIRUBIN Negative (Negative); BLOOD 1+ (Negative); CLARITY Clear (Clear); COLOR Dark Yellow (Yellow); GLUCOSE Negative (Negative); KETONE Trace (Negative); LEUKO ESTERASE Trace (Negative); NITRITE Negative (Negative); PH 5.5 (4.5-8.0); SPECIFIC GRAVITY 1.025 (1.001-1.030)
[2021-01-05 18:33] LABS: BACTERIA 1+; CALCIUM OXALATE CRYSTALS 2+; MUCOUS 2+
[2021-01-05] MEDS ORDERED: PANTOPRAZOLE SO40 MG PO (18:35)
[2021-01-05 19:00] VITALS: BP 100/60
[2021-01-05 20:00] VITALS: BP 101/60
[2021-01-05] MEDS ORDERED: SEROQUEL400 M1 PO (20:22)
[2021-01-05] MEDS ORDERED: COGENTIN0.5 MG PO (20:22)
[2021-01-05] MEDS ORDERED: LEVETIRACE100 MG/1 M PO (20:26)
[2021-01-06] VITALS: BP 100/59
[2021-01-06 06:20] LABS: BASO % 0.4 % (0.0-1.0); EOS # 0.1 10*3/uL (0.0-0.4); EOS % 3.3 % (1.0-4.0); LYMPH % 42.7 % (27.0-41.0); MEAN CELL VOLUME 88.8 fl (81.0-99.0); MEAN CORPUSCULAR HGB 28.4 pg (27.0-31.0); MEAN CORPUSCULAR HGB CONC 31.9 g/dl (33.0-37.0); MEAN PLATELET VOLUME 10.8 fl (9.6-12.3); MONO # 0.3 10*3/uL (0.1-1.0); NEUT % 41.6 % (47.0-73.0); PLATELET COUNT AUTOMATED 168 10*3/uL (130-400); RED BLOOD COUNT 3.49 10*6/uL (4.10-5.10); RED CELL DISTRI WIDTH 12.9 % (0-14.5); WHITE BLOOD COUNT 2.4 10*3/uL (4.8-10.8)
[2021-01-06 06:55] LABS: ALBUMIN 2.3 gm/dl (3.1-4.5); BUN 11 mg/dl (7-24); CHLORIDE 112 mmol/L (98-107); CREATININE 0.59 mg/dL (0.55-1.02); POTASSIUM 4.1 mmol/L (3.5-5.1); SGOT/AST 8 IU/L (3-35); SGPT/ALT 10 U/L (12-78); SODIUM 144 mmol/L (136-145)
[2021-01-06 06:56] LABS: ALKALINE PHOSPHATASE 49 U/L (45-117); TOTAL PROTEIN 5.7 gm/dL (6.4-8.2)
[2021-01-06 08:00] VITALS: BP 95/62
[2021-01-06 12:00] VITALS: BP 98/60
[2021-01-06 16:00] VITALS: BP 95/63
[2021-01-06 20:00] VITALS: BP 102/62
[2021-01-07] VITALS: BP 108/65
[2021-01-07 06:40] LABS: BASO % 0.3 % (0.0-1.0); EOS # 0.1 10*3/uL (0.0-0.4); LYMPH # 1.1 10*3/uL (1.3-4.4); LYMPH % 37.4 % (27.0-41.0); MEAN CELL VOLUME 87.4 fl (81.0-99.0); MEAN CORPUSCULAR HGB 28.4 pg (27.0-31.0); MEAN CORPUSCULAR HGB CONC 32.5 g/dl (33.0-37.0); MEAN PLATELET VOLUME 9.8 fl (9.6-12.3); MONO # 0.3 10*3/uL (0.1-1.0); MONO % 9.8 % (3.0-9.0); NEUT # 1.5 10*3/uL (2.3-7.9); NEUT % 49.2 % (47.0-73.0); PLATELET COUNT AUTOMATED 187 10*3/uL (130-400); RED BLOOD COUNT 3.66 10*6/uL (4.10-5.10); RED CELL DISTRI WIDTH 12.7 % (0-14.5)
[2021-01-07 07:13] LABS: BUN 7 mg/dl (7-24); CREATININE 0.64 mg/dL (0.55-1.02); IRON 24 ug/dL (50-170); TOTAL IRON BINDING CAPACITY 197 ug/dl (250-450)
[2021-01-07 07:38] LABS: CHLORIDE 110 mmol/L (98-107); POTASSIUM 3.8 mmol/L (3.5-5.1); SODIUM 144 mmol/L (136-145)
[2021-01-07 08:00] VITALS: BP 117/62
[2021-01-07 12:00] VITALS: BP 94/64
[2021-01-07 16:00] VITALS: BP 87/53; BP 94/64
[2021-01-07 20:00] VITALS: BP 110/67
[2021-01-08] VITALS: BP 105/68
[2021-01-08 06:31] LABS: BUN 7 mg/dl (7-24); CHLORIDE 112 mmol/L (98-107); CREATININE 0.57 mg/dL (0.55-1.02); POTASSIUM 3.9 mmol/L (3.5-5.1); SODIUM 145 mmol/L (136-145)
[2021-01-08 08:00] VITALS: BP 111/72
[2021-01-08 12:00] VITALS: BP 100/63
[2021-01-08 16:00] VITALS: BP 99/60
[2021-01-08 20:00] VITALS: BP 99/60
[2021-01-09] VITALS: BP 115/62
[2021-01-09 06:36] LABS: BUN 9 mg/dl (7-24); CHLORIDE 114 mmol/L (98-107); POTASSIUM 4.1 mmol/L (3.5-5.1); SODIUM 144 mmol/L (136-145)
[2021-01-09 08:00] VITALS: BP 122/66
[2021-01-09 12:00] VITALS: BP 125/62
[2021-01-09 16:00] VITALS: BP 103/60
[2021-01-09 20:00] VITALS: BP 100/33
[2021-01-10] VITALS: BP 144/63
[2021-01-10 08:00] VITALS: BP 119/68
[2021-01-10 16:00] VITALS: BP 122/66
[2021-01-10 20:00] VITALS: BP 108/56
[2021-01-11] VITALS: BP 110/58
[2021-01-11 06:51] LABS: HEMATOCRIT 32.1 % (37.0-47.0); MEAN CELL VOLUME 86.1 fl (81.0-99.0); MEAN CORPUSCULAR HGB 28.4 pg (27.0-31.0); MEAN PLATELET VOLUME 9.5 fl (9.6-12.3); PLATELET COUNT AUTOMATED 205 10*3/uL (130-400); RED BLOOD COUNT 3.73 10*6/uL (4.10-5.10); RED CELL DISTRI WIDTH 12.1 % (0-14.5); WHITE BLOOD COUNT 2.3 10*3/uL (4.8-10.8)
[2021-01-11 07:02] LABS: BUN 10 mg/dl (7-24); CHLORIDE 110 mmol/L (98-107); CREATININE 0.68 mg/dL (0.55-1.02); POTASSIUM 4.1 mmol/L (3.5-5.1); SODIUM 144 mmol/L (136-145)
[2021-01-11 07:07] LABS: BASOPHILS 1 % (0-1); TOTAL CELLS COUNTED 100 #CELLS
[2021-01-11 07:08] LABS: BURR CELLS FEW; OVALOCYTES FEW; PLATELET SUFFICIENCY NORMAL (NORMAL)
[2021-01-11 08:00] VITALS: BP 116/60
[2021-01-11 12:00] VITALS: BP 110/65
[2021-01-11 16:00] VITALS: BP 119/70
[2021-01-11 20:00] VITALS: BP 132/72
[2021-01-12] VITALS: BP 121/65
[2021-01-12 08:00] VITALS: BP 123/70
[2021-01-12 12:00] VITALS: BP 132/75
[2021-01-12 16:00] VITALS: BP 130/81
[2021-01-12 20:00] VITALS: BP 97/70
== END 2021-01-12 21:30 | disposition short-term general hospital (02) | DRG 252 ==
LOC: ED 17:26 → EDHOLD 18:27 → 5E 18:27
PROVIDERS: Emergency Medicine; Internal Medicine Nephrology; ADMIT Internal Medicine; ATTEND Internal Medicine
DX: K95.89 Other complications of other bariatric procedure (principal); N39.0 Urinary tract infection, site not specified; D72.819 Decreased white blood cell count, unspecified; D50.9 Iron deficiency anemia, unspecified; B19.20 Unspecified viral hepatitis C without hepatic coma; F41.9 Anxiety disorder, unspecified; E43 Unspecified severe protein-calorie malnutrition; Y84.8 Other medical procedures as the cause of abnormal reaction of the patient, or of later complication, without mention of misadventure at the time of the procedure; F11.10 Opioid abuse, uncomplicated; F32.9 Major depressive disorder, single episode, unspecified; D64.9 Anemia, unspecified; Z96.642 Presence of left artificial hip joint; G40.909 Epilepsy, unspecified, not intractable, without status epilepticus; E44.1 Mild protein-calorie malnutrition; E53.8 Deficiency of other specified B group vitamins; K31.1 Adult hypertrophic pyloric stenosis; Z90.49 Acquired absence of other specified parts of digestive tract; Z88.8 Allergy status to other drugs, medicaments and biological substances; Z80.1 Family history of malignant neoplasm of trachea, bronchus and lung; Z98.84 Bariatric surgery status; Z79.899 Other long term (current) drug therapy; Z68.20 Body mass index [BMI] 20.0-20.9, adult

== ENCOUNTER → 2021-02-04 | Outpatient (CLI) | payer OTHER ==
[~2021-02-04] MED LIST changes: +LEVETIRACE100 MG/1 M PO; +PANTOPRAZOLE SO40 MG PO
== END | disposition home or self-care (01) ==
LOC: RAD 14:55
PROVIDERS: ATTEND Internal Medicine
DX: R06.02 Shortness of breath (principal)

== ENCOUNTER 2021-02-27 08:47 | Emergency (ER) | payer OTHER ==
[~2021-02-27] VITALS: Wt 68.5 kg
[2021-02-27 09:22] LABS: BASO # 0.1 10*3/uL (0.0-0.1); BASO % 0.5 % (0.0-1.0); EOS # 0.2 10*3/uL (0.0-0.4); EOS % 1.6 % (1.0-4.0); HEMATOCRIT 32.3 % (37.0-47.0); LYMPH # 2.4 10*3/uL (1.3-4.4); LYMPH % 20.6 % (27.0-41.0); MEAN CELL VOLUME 93.4 fl (81.0-99.0); MEAN CORPUSCULAR HGB 29.2 pg (27.0-31.0); MEAN CORPUSCULAR HGB CONC 31.3 g/dl (33.0-37.0); MEAN PLATELET VOLUME 9.9 fl (9.6-12.3); MONO # 0.7 10*3/uL (0.1-1.0); MONO % 6.2 % (3.0-9.0); NEUT # 8.1 10*3/uL (2.3-7.9); NEUT % 69.6 % (47.0-73.0); PLATELET COUNT AUTOMATED 259 10*3/uL (130-400); RED BLOOD COUNT 3.46 10*6/uL (4.10-5.10); RED CELL DISTRI WIDTH 13.7 % (0-14.5); WHITE BLOOD COUNT 11.6 10*3/uL (4.8-10.8)
[2021-02-27 09:31] LABS: ACT PARTIAL THROMBO TIME 26.6 SECONDS (20.0-32.1)
[2021-02-27 09:36] LABS: ALBUMIN 2.8 gm/dl (3.1-4.5); ALKALINE PHOSPHATASE 50 U/L (45-117); BUN 33 mg/dl (7-24); CHLORIDE 106 mmol/L (98-107); CPK 277 U/L (26-192); CREATININE 0.85 mg/dL (0.55-1.02); POTASSIUM 3.8 mmol/L (3.5-5.1); SGOT/AST 11 IU/L (3-35); SGPT/ALT 17 U/L (12-78); SODIUM 139 mmol/L (136-145); TOTAL PROTEIN 6.5 gm/dL (6.4-8.2)
[2021-02-27 11:25] LABS: BILIRUBIN Negative (Negative); BLOOD Trace-Lysed (Negative); CLARITY Clear (Clear); COLOR Yellow (Yellow); GLUCOSE Negative (Negative); KETONE Negative (Negative); LEUKO ESTERASE 1+ (Negative); NITRITE Negative (Negative); UROBILINOGEN 0.2 E.U./dl (0.0-1.0)
[2021-02-27 11:30] LABS: BACTERIA 1+; RBC 0-2 rbc/hpf (0-2); WBC 31-40 wbc/hpf (0-5)
[2021-02-27 11:33] LABS: URINE AMPHETAMINES < 1000 (1000ng/ml); URINE BARBITURATES < 200 (200ng/ml); URINE BENZODIAZEPINES < 200 (200ng/ml); URINE CANNABINOIDS (THC) < 50 (50ng/ml); URINE COCAINE < 300 (300ng/ml); URINE METHADONE < 300 (300ng/ml); URINE OPIATES < 300 (300ng/ml); URINE PHENCYCLIDINE < 25 (25ng/ml)
== END 2021-02-27 12:33 | disposition short-term general hospital (02) ==
LOC: ED 08:47
PROVIDERS: Emergency Medicine
DX: G40.901 Epilepsy, unspecified, not intractable, with status epilepticus (principal); F41.9 Anxiety disorder, unspecified; F32.9 Major depressive disorder, single episode, unspecified; Z88.8 Allergy status to other drugs, medicaments and biological substances; Z79.899 Other long term (current) drug therapy; Z98.51 Tubal ligation status; Z96.642 Presence of left artificial hip joint; Z98.890 Other specified postprocedural states; Z90.49 Acquired absence of other specified parts of digestive tract

== ENCOUNTER 2021-06-20 04:33 | Emergency (ER) | payer OTHER ==
[~2021-06-20] VITALS: Ht 160 cm; Wt 65.0 kg
[2021-06-20 04:49] LABS: BASO % 0.5 % (0.0-1.0); EOS % 0.9 % (1.0-4.0); HEMATOCRIT 36.2 % (37.0-47.0); LYMPH # 0.6 10*3/uL (1.3-4.4); LYMPH % 13.2 % (27.0-41.0); MEAN CELL VOLUME 86.2 fl (81.0-99.0); MEAN CORPUSCULAR HGB 27.9 pg (27.0-31.0); MEAN CORPUSCULAR HGB CONC 32.3 g/dl (33.0-37.0); MEAN PLATELET VOLUME 9.8 fl (9.6-12.3); MONO # 0.2 10*3/uL (0.1-1.0); MONO % 4.6 % (3.0-9.0); NEUT # 3.5 10*3/uL (2.3-7.9); NEUT % 80.6 % (47.0-73.0); PLATELET COUNT AUTOMATED 199 10*3/uL (130-400); RED CELL DISTRI WIDTH 13.6 % (0-14.5); WHITE BLOOD COUNT 4.4 10*3/uL (4.8-10.8)
[2021-06-20 05:03] LABS: ALBUMIN 3.1 gm/dl (3.1-4.5); ALKALINE PHOSPHATASE 70 U/L (45-117); BUN 15 mg/dl (7-24); CHLORIDE 107 mmol/L (98-107); CREATININE 0.68 mg/dL (0.55-1.02); POTASSIUM 4.1 mmol/L (3.5-5.1); SGOT/AST 16 IU/L (3-35); SGPT/ALT 21 U/L (12-78); SODIUM 139 mmol/L (136-145)
[2021-06-20 06:20] LABS: BILIRUBIN Negative (Negative); BLOOD Trace-Lysed (Negative); CLARITY Clear (Clear); COLOR Yellow (Yellow); GLUCOSE Negative (Negative); KETONE Negative (Negative); LEUKO ESTERASE Negative (Negative); NITRITE Negative (Negative); PH 6.5 (4.5-8.0); SPECIFIC GRAVITY 1.015 (1.001-1.030)
[2021-06-20 06:29] LABS: EPITHELIAL CELLS 0-2; WBC 0-2 wbc/hpf (0-5)
[2021-06-20 06:31] LABS: URINE AMPHETAMINES < 1000 (1000ng/ml); URINE BARBITURATES > 200 (200ng/ml); URINE BENZODIAZEPINES < 200 (200ng/ml); URINE CANNABINOIDS (THC) < 50 (50ng/ml); URINE COCAINE < 300 (300ng/ml); URINE METHADONE < 300 (300ng/ml); URINE OPIATES < 300 (300ng/ml)
[2021-06-20 06:40] LABS: URINE PHENCYCLIDINE < 25 (25ng/ml)
== END 2021-06-20 10:37 | disposition home or self-care (01) ==
LOC: ED 04:33
PROVIDERS: Internal Medicine
DX: G40.909 Epilepsy, unspecified, not intractable, without status epilepticus (principal); Z88.8 Allergy status to other drugs, medicaments and biological substances; Z79.899 Other long term (current) drug therapy

== ENCOUNTER 2021-09-27 06:26 | Emergency (ER) | payer OTHER ==
[~2021-09-27] VITALS: Ht 167.6 cm; Wt 86.2 kg
[~2021-09-27 06:26] MED LIST changes: -LEVETIRACE100 MG/1 M PO; +LEVOFLOXACIN750 M2 PO; +METOCLOPRAMIDE H5 M1 PO; +[UNRECOGNIZED DRUG - OTHER] PO
[2021-09-27 06:52] LABS: BASO % 0.2 % (0.0-1.0); EOS # 0.1 10*3/uL (0.0-0.4); EOS % 1.5 % (1.0-4.0); HEMATOCRIT 32.7 % (37.0-47.0); LYMPH # 0.8 10*3/uL (1.3-4.4); LYMPH % 15.4 % (27.0-41.0); MEAN CELL VOLUME 88.6 fl (81.0-99.0); MEAN CORPUSCULAR HGB 28.2 pg (27.0-31.0); MEAN CORPUSCULAR HGB CONC 31.8 g/dl (33.0-37.0); MEAN PLATELET VOLUME 9.5 fl (9.6-12.3); MONO # 0.2 10*3/uL (0.1-1.0); NEUT # 4.2 10*3/uL (2.3-7.9); NEUT % 79.3 % (47.0-73.0); PLATELET COUNT AUTOMATED 266 10*3/uL (130-400); RED BLOOD COUNT 3.69 10*6/uL (4.10-5.10); RED CELL DISTRI WIDTH 12.8 % (0-14.5); WHITE BLOOD COUNT 5.3 10*3/uL (4.8-10.8)
[2021-09-27 07:04] LABS: BUN 16 mg/dl (7-24); CHLORIDE 114 mmol/L (98-107); CREATININE 0.73 mg/dL (0.55-1.02); POTASSIUM 3.8 mmol/L (3.5-5.1); SODIUM 143 mmol/L (136-145)
[2021-09-27 07:05] LABS: ETHYL ALCOHOL < 3.0 mg/dl (<3)
[2021-09-27 11:39] LABS: BILIRUBIN Negative (Negative); BLOOD Negative (Negative); CLARITY Turbid (Clear); COLOR Yellow (Yellow); GLUCOSE Negative (Negative); KETONE Negative (Negative); LEUKO ESTERASE Trace (Negative); NITRITE Negative (Negative); SPECIFIC GRAVITY >= 1.030 (1.001-1.030); UROBILINOGEN 0.2 E.U./dl (0.0-1.0)
[2021-09-27 12:19] LABS: URINE AMPHETAMINES < 1000 (1000ng/ml); URINE BARBITURATES < 200 (200ng/ml); URINE BENZODIAZEPINES < 200 (200ng/ml); URINE CANNABINOIDS (THC) < 50 (50ng/ml); URINE COCAINE < 300 (300ng/ml); URINE METHADONE < 300 (300ng/ml); URINE OPIATES > 300 (300ng/ml)
[2021-09-27 12:28] LABS: URINE PHENCYCLIDINE < 25 (25ng/ml)
[2021-09-27 12:31] LABS: BACTERIA 2+; CALCIUM OXALATE CRYSTALS 3+; WBC 16-20 wbc/hpf (0-5)
== END 2021-09-27 13:01 | disposition home or self-care (01) ==
LOC: ED 06:26
PROVIDERS: Internal Medicine
DX: G40.909 Epilepsy, unspecified, not intractable, without status epilepticus (principal); Z79.899 Other long term (current) drug therapy

== ENCOUNTER 2022-03-05 08:16 | Inpatient (IN) | payer OTHER ==
[~2022-03-05] VITALS: Ht 154.9 cm; Wt 59.0 kg
[2022-03-05] VITALS (10 sets, daily range): BP systolic 102–130; BP diastolic 40–68
[2022-03-05 08:46] LABS: HEMATOCRIT 29.1 % (37.0-47.0); MANUAL DIFF REFLEX YES; MEAN CELL VOLUME 82.9 fl (81.0-99.0); MEAN CORPUSCULAR HGB 25.9 pg (27.0-31.0); MEAN CORPUSCULAR HGB CONC 31.3 g/dl (33.0-37.0); MEAN PLATELET VOLUME 9.4 fl (9.6-12.3); PLATELET COUNT AUTOMATED 155 10*3/uL (130-400); RED BLOOD COUNT 3.51 10*6/uL (4.10-5.10); RED CELL DISTRI WIDTH 14.5 % (0-14.5); WHITE BLOOD COUNT 7.9 10*3/uL (4.8-10.8)
[2022-03-05 08:56] LABS: ACT PARTIAL THROMBO TIME 25.4 SECONDS (20.0-32.1)
[2022-03-05 08:59] LABS: CREATININE 1.17 mg/dL (0.55-1.02); POTASSIUM 2.8 mmol/L (3.5-5.1); TOTAL PROTEIN 6.5 gm/dL (6.4-8.2)
[2022-03-05 09:13] LABS: TOTAL CELLS COUNTED 100 #CELLS
[2022-03-05 09:14] LABS: PLATELET SUFFICIENCY NORMAL (NORMAL)
[2022-03-05 16:20] LABS: BILIRUBIN Negative (Negative); BLOOD Trace-Lysed (Negative); CLARITY Clear (Clear); COLOR Yellow (Yellow); GLUCOSE Negative (Negative); KETONE Negative (Negative); LEUKO ESTERASE Negative (Negative); NITRITE Negative (Negative); SPECIFIC GRAVITY 1.015 (1.001-1.030); UROBILINOGEN 0.2 E.U./dl (0.0-1.0)
[2022-03-05 16:33] LABS: EPITHELIAL CELLS 0-2; WBC 0-2 wbc/hpf (0-5)
[2022-03-05 17:53] LABS: URINE AMPHETAMINES < 1000 (1000ng/ml); URINE BARBITURATES < 200 (200ng/ml); URINE BENZODIAZEPINES < 200 (200ng/ml); URINE CANNABINOIDS (THC) < 50 (50ng/ml); URINE COCAINE < 300 (300ng/ml); URINE METHADONE < 300 (300ng/ml); URINE OPIATES < 300 (300ng/ml)
[2022-03-05 17:57] LABS: URINE PHENCYCLIDINE < 25 (25ng/ml)
[2022-03-05] MEDS ORDERED: QUETIAPINE FUM400 M1 PO (20:42)
[2022-03-06] VITALS: BP 124/56
[2022-03-06 08:00] VITALS: BP 112/55
[2022-03-06 09:05] LABS: BASO % 0.2 % (0.0-1.0); EOS # 0.1 10*3/uL (0.0-0.4); EOS % 1.6 % (1.0-4.0); HEMATOCRIT 29.9 % (37.0-47.0); LYMPH # 0.6 10*3/uL (1.3-4.4); LYMPH % 11.7 % (27.0-41.0); MEAN CELL VOLUME 83.3 fl (81.0-99.0); MEAN CORPUSCULAR HGB 25.9 pg (27.0-31.0); MEAN CORPUSCULAR HGB CONC 31.1 g/dl (33.0-37.0); MEAN PLATELET VOLUME 9.9 fl (9.6-12.3); MONO # 0.2 10*3/uL (0.1-1.0); MONO % 4.2 % (3.0-9.0); NEUT # 4.1 10*3/uL (2.3-7.9); NEUT % 82.1 % (47.0-73.0); PLATELET COUNT AUTOMATED 169 10*3/uL (130-400); RED BLOOD COUNT 3.59 10*6/uL (4.10-5.10); RED CELL DISTRI WIDTH 14.8 % (0-14.5)
[2022-03-06 09:17] LABS: BUN 16 mg/dl (7-24); CHLORIDE 110 mmol/L (98-107); CREATININE 0.73 mg/dL (0.55-1.02); POTASSIUM 3.5 mmol/L (3.5-5.1); SODIUM 142 mmol/L (136-145)
[2022-03-06 12:00] VITALS: BP 107/48
[2022-03-06] MEDS ORDERED: LEVOFLOXACIN750 M2 PO (13:18)
[2022-03-06] MEDS ORDERED: LEVETIRACETAM500 MG PO (13:26)
[2022-03-06] MEDS ORDERED: PREMARIN0.625 M1 PO (13:27)
[2022-03-06 16:00] VITALS: BP 118/63
[2022-03-06 20:00] VITALS: BP 128/47
[2022-03-07] VITALS: BP 135/63
[2022-03-07 05:59] LABS: BUN 11 mg/dl (7-24); CHLORIDE 112 mmol/L (98-107); CREATININE 0.64 mg/dL (0.55-1.02); POTASSIUM 2.8 mmol/L (3.5-5.1); SODIUM 144 mmol/L (136-145)
[2022-03-07 06:21] LABS: BASO % 0.3 % (0.0-1.0); EOS # 0.1 10*3/uL (0.0-0.4); EOS % 3.5 % (1.0-4.0); HEMATOCRIT 28.4 % (37.0-47.0); LYMPH # 0.9 10*3/uL (1.3-4.4); MEAN CELL VOLUME 84.5 fl (81.0-99.0); MEAN CORPUSCULAR HGB 26.2 pg (27.0-31.0); MEAN PLATELET VOLUME 10.8 fl (9.6-12.3); MONO # 0.3 10*3/uL (0.1-1.0); MONO % 8.5 % (3.0-9.0); NEUT # 2.1 10*3/uL (2.3-7.9); NEUT % 62.4 % (47.0-73.0); PLATELET COUNT AUTOMATED 184 10*3/uL (130-400); RED BLOOD COUNT 3.36 10*6/uL (4.10-5.10); RED CELL DISTRI WIDTH 14.8 % (0-14.5); WHITE BLOOD COUNT 3.4 10*3/uL (4.8-10.8)
[2022-03-07 08:00] VITALS: BP 121/67
[2022-03-07 09:45] VITALS: BP 110/58
[2022-03-07 12:00] VITALS: BP 132/61
[2022-03-07] MEDS ORDERED: KLOR-CON M1010 ME1 PO (12:35)
[2022-03-07 14:18] LABS: BUN 9 mg/dl (7-24); CHLORIDE 112 mmol/L (98-107); CREATININE 0.72 mg/dL (0.55-1.02); POTASSIUM 3.6 mmol/L (3.5-5.1); SODIUM 142 mmol/L (136-145)
[2022-03-07 15:26] VITALS: BP 137/56
== END 2022-03-07 18:20 | disposition home or self-care (01) | DRG 53 ==
LOC: ED 08:16 → 4E 11:40 → EDHOLD 11:40 → 4E 17:14
PROVIDERS: Emergency Medicine; Internal Medicine Nephrology; ADMIT Internal Medicine; ATTEND Internal Medicine
DX: G40.909 Epilepsy, unspecified, not intractable, without status epilepticus (principal); J69.0 Pneumonitis due to inhalation of food and vomit; K22.2 Esophageal obstruction; E87.6 Hypokalemia; E87.2 Acidosis; R73.9 Hyperglycemia, unspecified; N17.9 Acute kidney failure, unspecified; D64.9 Anemia, unspecified; Z88.8 Allergy status to other drugs, medicaments and biological substances; Z80.1 Family history of malignant neoplasm of trachea, bronchus and lung; Z79.899 Other long term (current) drug therapy; Z79.2 Long term (current) use of antibiotics

== ENCOUNTER → 2022-07-16 | Outpatient (CLI) | payer OTHER ==
[~2022-07-16] MED LIST changes: +KLOR-CON M1010 ME1 PO; +LEVETIRACETAM500 MG PO; +PREMARIN0.625 M1 PO; +QUETIAPINE FUM400 M1 PO
[2022-07-16 10:13] LABS: BASO % 0.4 % (0.0-1.0); EOS # 0.1 10*3/uL (0.0-0.4); EOS % 1.5 % (1.0-4.0); HEMATOCRIT 35.6 % (37.0-47.0); LYMPH # 0.9 10*3/uL (1.3-4.4); LYMPH % 9.6 % (27.0-41.0); MEAN CELL VOLUME 84.2 fl (81.0-99.0); MEAN CORPUSCULAR HGB 26.2 pg (27.0-31.0); MEAN CORPUSCULAR HGB CONC 31.2 g/dl (33.0-37.0); MEAN PLATELET VOLUME 9.9 fl (9.6-12.3); MONO # 0.3 10*3/uL (0.1-1.0); MONO % 3.5 % (3.0-9.0); NEUT # 7.9 10*3/uL (2.3-7.9); NEUT % 84.7 % (47.0-73.0); PLATELET COUNT AUTOMATED 237 10*3/uL (130-400); RED BLOOD COUNT 4.23 10*6/uL (4.10-5.10); RED CELL DISTRI WIDTH 14.6 % (0-14.5); WHITE BLOOD COUNT 9.4 10*3/uL (4.8-10.8)
[2022-07-16 10:28] LABS: ALKALINE PHOSPHATASE 61 U/L (45-117); BUN 13 mg/dl (7-24); CHLORIDE 110 mmol/L (98-107); POTASSIUM 3.1 mmol/L (3.5-5.1); SGOT/AST 15 IU/L (3-35); SGPT/ALT 15 U/L (12-78); SODIUM 144 mmol/L (136-145)
== END | disposition home or self-care (01) ==
LOC: LAB 09:51
PROVIDERS: ATTEND Internal Medicine
DX: G40.909 Epilepsy, unspecified, not intractable, without status epilepticus (principal); R63.4 Abnormal weight loss

== ENCOUNTER 2022-08-16 18:38 | Emergency (ER) | payer OTHER ==
[~2022-08-16] VITALS: Ht 172.7 cm; Wt 57.2 kg
[~2022-08-16 18:38] MED LIST changes: +ALDACTONE25 MG PO; +MASON NATURAL325 MG PO
[2022-08-16 20:30] LABS: BASO % 0.8 % (0.0-1.0); EOS # 0.2 10*3/uL (0.0-0.4); EOS % 5.7 % (1.0-4.0); LYMPH # 1.1 10*3/uL (1.3-4.4); LYMPH % 27.3 % (27.0-41.0); MEAN CELL VOLUME 86.8 fl (81.0-99.0); MEAN CORPUSCULAR HGB 27.3 pg (27.0-31.0); MEAN CORPUSCULAR HGB CONC 31.4 g/dl (33.0-37.0); MEAN PLATELET VOLUME 10.5 fl (9.6-12.3); MONO # 0.4 10*3/uL (0.1-1.0); MONO % 9.1 % (3.0-9.0); NEUT # 2.2 10*3/uL (2.3-7.9); NEUT % 56.8 % (47.0-73.0); PLATELET COUNT AUTOMATED 173 10*3/uL (130-400); RED BLOOD COUNT 4.03 10*6/uL (4.10-5.10); RED CELL DISTRI WIDTH 14.6 % (0-14.5); WHITE BLOOD COUNT 3.9 10*3/uL (4.8-10.8)
[2022-08-16 20:50] LABS: ALKALINE PHOSPHATASE 66 U/L (45-117); BUN 9 mg/dl (7-24); CHLORIDE 105 mmol/L (98-107); CREATININE 0.82 mg/dL (0.55-1.02); POTASSIUM 3.6 mmol/L (3.5-5.1); SGOT/AST 17 IU/L (3-35); SGPT/ALT 21 U/L (12-78); SODIUM 142 mmol/L (136-145); TOTAL PROTEIN 6.1 gm/dL (6.4-8.2)
[2022-08-16 22:35] LABS: BILIRUBIN Negative (Negative); BLOOD Negative (Negative); CLARITY Clear (Clear); COLOR Yellow (Yellow); GLUCOSE Negative (Negative); KETONE Negative (Negative); LEUKO ESTERASE Negative (Negative); NITRITE Negative (Negative); SPECIFIC GRAVITY 1.015 (1.001-1.030); UROBILINOGEN 0.2 E.U./dl (0.0-1.0)
[2022-08-16 22:46] LABS: RBC 0-2 rbc/hpf (0-2)
== END 2022-08-17 06:55 | disposition home or self-care (01) ==
LOC: ED 18:38
PROVIDERS: Emergency Medicine
DX: R42 Dizziness and giddiness (principal); I10 Essential (primary) hypertension; G40.909 Epilepsy, unspecified, not intractable, without status epilepticus; Z88.8 Allergy status to other drugs, medicaments and biological substances; Z79.899 Other long term (current) drug therapy; Z90.49 Acquired absence of other specified parts of digestive tract; Z98.51 Tubal ligation status; Z90.89 Acquired absence of other organs

== ENCOUNTER → 2022-11-21 | Outpatient (CLI) | payer OTHER ==
[~2022-11-21] MED LIST changes: +CALCIUM CARBON200 MG PO; +Carafate1 GM PO; +MAGNESIUM200 M1 PO; +NEURONTIN300 MG PO; +ONDANSETRON HYDR4 M1 PO; +PROTONIX40 MG PO; +ROPINIROLE HY0.25 MG PO; +VITAMIN D3125 MC1 PO
[2022-11-21 13:19] LABS: BUN 8 mg/dl (9-23); CHLORIDE 98 mmol/L (98-107); POTASSIUM 3.8 mmol/L (3.4-5.1)
== END | disposition home or self-care (01) ==
LOC: LAB 12:37
PROVIDERS: ATTEND Internal Medicine
DX: G40.909 Epilepsy, unspecified, not intractable, without status epilepticus (principal); E83.42 Hypomagnesemia; E83.39 Other disorders of phosphorus metabolism

== ENCOUNTER → 2023-01-05 | Outpatient (CLI) | payer OTHER ==
[~2023-01-05] MED LIST changes: +BENZTROPINE ME0.5 MG PO; +RAMELTEON8 MG PO; +VENT7GM INH
[2023-01-05 11:19] LABS: BUN 9 mg/dl (9-23); CHLORIDE 105 mmol/L (98-107); POTASSIUM 5.4 mmol/L (3.4-5.1)
== END | disposition home or self-care (01) ==
LOC: LAB 10:02
PROVIDERS: ATTEND Nurse Practitioner Family
DX: E87.6 Hypokalemia (principal)

== ENCOUNTER 2023-01-09 08:42 | Inpatient (IN) | payer OTHER ==
[~2023-01-09] VITALS: Ht 160 cm; Wt 53.2 kg
[~2023-01-09 08:42] MED LIST changes: -BENZTROPINE ME0.5 MG PO; -RAMELTEON8 MG PO; -VENT7GM INH
[2023-01-09 10:05] VITALS: BP 113/49
[2023-01-09 10:41] LABS: BASO % 0.9 % (0.0-1.0); EOS # 0.2 10*3/uL (0.0-0.4); EOS % 3.5 % (1.0-4.0); HEMATOCRIT 38.6 % (37.0-47.0); LYMPH # 1.2 10*3/uL (1.3-4.4); LYMPH % 26.9 % (27.0-41.0); MEAN CORPUSCULAR HGB CONC 32.9 g/dl (33.0-37.0); MEAN PLATELET VOLUME 10.6 fl (9.6-12.3); MONO # 0.4 10*3/uL (0.1-1.0); MONO % 8.2 % (3.0-9.0); NEUT # 2.6 10*3/uL (2.3-7.9); NEUT % 60.5 % (47.0-73.0); PLATELET COUNT AUTOMATED 301 10*3/uL (130-400); RED BLOOD COUNT 4.24 10*6/uL (4.10-5.10); RED CELL DISTRI WIDTH 12.9 % (0-14.5); WHITE BLOOD COUNT 4.3 10*3/uL (4.8-10.8)
[2023-01-09 10:56] LABS: ALKALINE PHOSPHATASE 54 U/L (46-116); BUN 11 mg/dl (9-23); CHLORIDE 101 mmol/L (98-107); POTASSIUM 3.7 mmol/L (3.4-5.1); SGPT/ALT 40 U/L (10-49); TOTAL PROTEIN 7.2 gm/dL (6.0-8.0)
[2023-01-09 11:35] LABS: BILIRUBIN Negative (Negative); BLOOD 1+ (Negative); CLARITY Clear (Clear); COLOR Yellow (Yellow); GLUCOSE Negative (Negative); KETONE Negative (Negative); LEUKO ESTERASE Negative (Negative); NITRITE Negative (Negative); PH 5.5 (4.5-8.0); SPECIFIC GRAVITY 1.015 (1.001-1.030); UROBILINOGEN 0.2 E.U./dl (0.0-1.0)
[2023-01-09 11:42] LABS: URINE AMPHETAMINES Negative (1000ng/ml); URINE BARBITURATES Negative (200ng/ml); URINE BENZODIAZEPINES Positive (200ng/ml); URINE CANNABINOIDS (THC) Negative (50ng/ml); URINE COCAINE Positive (300ng/ml); URINE METHADONE Negative (300ng/ml); URINE OPIATES Positive (300ng/ml); URINE PHENCYCLIDINE Negative (25ng/ml)
[2023-01-09 11:53] LABS: BACTERIA 1+; EPITHELIAL CELLS 0-2; RBC 21-30 rbc/hpf (0-2)
[2023-01-09 13:15] VITALS: BP 94/56
[2023-01-09] MEDS ORDERED: BENZTROPINE ME0.5 MG PO (14:37)
[2023-01-09] MEDS ORDERED: RAMELTEON8 MG PO (14:37)
[2023-01-09] MEDS ORDERED: TIZANIDINE HCL4 MG PO (14:38)
[2023-01-09] MEDS ORDERED: VENT7GM INH (14:38)
[2023-01-09 16:00] VITALS: BP 89/46
[2023-01-09 20:00] VITALS: BP 108/40
[2023-01-10] VITALS: BP 129/76
[2023-01-10 08:00] VITALS: BP 115/57
[2023-01-10 12:00] VITALS: BP 111/80
[2023-01-10 16:00] VITALS: BP 115/62
[2023-01-10 20:00] VITALS: BP 117/65
[2023-01-11] VITALS: BP 108/57
[2023-01-11 08:00] VITALS: BP 135/73
[2023-01-11 12:00] VITALS: BP 150/72
[2023-01-11 16:00] VITALS: BP 152/72
[2023-01-11 20:00] VITALS: BP 100/48; BP 89/47
[2023-01-12] VITALS: BP 84/50; BP 90/40
[2023-01-12 05:00] VITALS: BP 110/58
[2023-01-12 08:00] VITALS: BP 100/51
[2023-01-12 11:54] VITALS: BP 98/44
== END 2023-01-12 15:00 | disposition home or self-care (01) | DRG 773 ==
LOC: ED 08:42 → EDHOLD 11:34 → 4E 11:34
PROVIDERS: Emergency Medicine; ADMIT Internal Medicine; ATTEND Internal Medicine
DX: F11.13 Opioid abuse with withdrawal (principal); F13.10 Sedative, hypnotic or anxiolytic abuse, uncomplicated; B19.20 Unspecified viral hepatitis C without hepatic coma; R74.01 Elevation of levels of liver transaminase levels; F41.9 Anxiety disorder, unspecified; F32.9 Major depressive disorder, single episode, unspecified; R31.9 Hematuria, unspecified; D72.819 Decreased white blood cell count, unspecified; Z96.642 Presence of left artificial hip joint; R82.71 Bacteriuria; E55.9 Vitamin D deficiency, unspecified; E53.8 Deficiency of other specified B group vitamins; G40.901 Epilepsy, unspecified, not intractable, with status epilepticus; F14.10 Cocaine abuse, uncomplicated; Z98.84 Bariatric surgery status; Z79.51 Long term (current) use of inhaled steroids; Z79.899 Other long term (current) drug therapy; Z80.1 Family history of malignant neoplasm of trachea, bronchus and lung; Z90.49 Acquired absence of other specified parts of digestive tract

== ENCOUNTER 2023-09-14 15:16 | Emergency (ER) | payer OTHER ==
[~2023-09-14] VITALS: Ht 160 cm; Wt 63.5 kg
[~2023-09-14 15:16] MED LIST changes: +BENZTROPINE ME0.5 MG PO; +RAMELTEON8 MG PO; +VENT7GM INH
[2023-09-14] MEDS ORDERED: LEVETIRACETAM1000 M1 PO (17:03)
[2023-09-14] MEDS ORDERED: OMEPRAZOLE40 MG PO (17:03)
[2023-09-14] MEDS ORDERED: PREMARIN0.3 M1 PO (17:04)
[2023-09-14 18:53] LABS: BASO % 0.3 % (0.0-1.0); EOS # 0.1 10*3/uL (0.0-0.4); EOS % 1.8 % (1.0-4.0); LYMPH # 0.9 10*3/uL (1.3-4.4); MEAN CELL VOLUME 90.6 fl (81.0-99.0); MEAN CORPUSCULAR HGB 30.2 pg (27.0-31.0); MEAN CORPUSCULAR HGB CONC 33.3 g/dl (33.0-37.0); MEAN PLATELET VOLUME 8.2 fl (9.6-12.3); MONO # 0.4 10*3/uL (0.1-1.0); MONO % 6.1 % (3.0-9.0); NEUT # 5.1 10*3/uL (2.3-7.9); NEUT % 77.9 % (47.0-73.0); PLATELET COUNT AUTOMATED 294 10*3/uL (130-400); RED BLOOD COUNT 2.98 10*6/uL (4.10-5.10); RED CELL DISTRI WIDTH 12.4 % (0-14.5); WHITE BLOOD COUNT 6.5 10*3/uL (4.8-10.8)
[2023-09-14 19:14] LABS: ALKALINE PHOSPHATASE 79 U/L (46-116); BUN 13 mg/dl (9-23); CHLORIDE 106 mmol/L (98-107); SGPT/ALT 7 U/L (5-49); TOTAL PROTEIN 6.2 gm/dL (6.0-8.0)
[2023-09-14] MEDS ORDERED: AMOX-CLAV 875-1 EACH PO (20:38)
== END 2023-09-14 20:53 | disposition home or self-care (01) ==
LOC: ED 15:16
PROVIDERS: Nurse Practitioner
DX: J18.9 Pneumonia, unspecified organism (principal); D64.9 Anemia, unspecified; F32.A Depression, unspecified; Z98.51 Tubal ligation status; Z90.49 Acquired absence of other specified parts of digestive tract; Z98.890 Other specified postprocedural states; Z90.89 Acquired absence of other organs; Z20.822 Contact with and (suspected) exposure to COVID-19

== ENCOUNTER → 2023-09-28 | Outpatient (CLI) | payer OTHER ==
[~2023-09-28] MED LIST changes: +AMOX-CLAV 875-1 EACH PO; +OMEPRAZOLE40 MG PO; +PREMARIN0.3 M1 PO
== END | disposition home or self-care (01) ==
LOC: RAD 16:49
PROVIDERS: ATTEND Internal Medicine
DX: J18.9 Pneumonia, unspecified organism (principal)

== ENCOUNTER 2023-12-17 17:01 | Emergency (ER) | payer OTHER ==
[~2023-12-17] VITALS: Wt 68.0 kg
[2023-12-17 17:30] LABS: BASO % 0.3 % (0.0-1.0); EOS # 0.1 10*3/uL (0.0-0.4); EOS % 0.8 % (1.0-4.0); HEMATOCRIT 40.5 % (37.0-47.0); LYMPH # 0.8 10*3/uL (1.3-4.4); LYMPH % 11.4 % (27.0-41.0); MEAN CELL VOLUME 92.9 fl (81.0-99.0); MEAN CORPUSCULAR HGB 28.9 pg (27.0-31.0); MEAN CORPUSCULAR HGB CONC 31.1 g/dl (33.0-37.0); MEAN PLATELET VOLUME 10.1 fl (9.6-12.3); MONO # 0.4 10*3/uL (0.1-1.0); MONO % 5.3 % (3.0-9.0); NEUT % 81.9 % (47.0-73.0); PLATELET COUNT AUTOMATED 215 10*3/uL (130-400); RED BLOOD COUNT 4.36 10*6/uL (4.10-5.10); RED CELL DISTRI WIDTH 12.5 % (0-14.5); WHITE BLOOD COUNT 7.3 10*3/uL (4.8-10.8)
[2023-12-17 17:42] LABS: ACT PARTIAL THROMBO TIME 23.3 SECONDS (20.0-32.1)
[2023-12-17 17:51] LABS: ALKALINE PHOSPHATASE 77 U/L (46-116); BUN 15 mg/dl (9-23); CHLORIDE 104 mmol/L (98-107); LIPASE 33 U/L (12-53); POTASSIUM 3.5 mmol/L (3.4-5.1); SGPT/ALT 21 U/L (5-49); TOTAL PROTEIN 7.2 gm/dL (6.0-8.0)
[2023-12-17 17:53] LABS: ETHYL ALCOHOL < 3.0 mg/dl (<3)
[2023-12-17 18:45] LABS: BILIRUBIN Negative (Negative); BLOOD 1+ (Negative); CLARITY Clear (Clear); COLOR Yellow (Yellow); GLUCOSE Negative (Negative); KETONE Negative (Negative); LEUKO ESTERASE Negative (Negative); NITRITE Negative (Negative); UROBILINOGEN 0.2 E.U./dl (0.0-1.0)
[2023-12-17] MEDS ORDERED: SODIUM CHLORIDE 0.9% 1,000 ML IV ONE (18:45)
[2023-12-17 18:55] LABS: URINE AMPHETAMINES Negative (1000ng/ml); URINE BARBITURATES Negative (200ng/ml); URINE BENZODIAZEPINES Negative (200ng/ml); URINE CANNABINOIDS (THC) Negative (50ng/ml); URINE COCAINE Negative (300ng/ml); URINE METHADONE Negative (300ng/ml); URINE OPIATES Negative (300ng/ml); URINE PHENCYCLIDINE Negative (25ng/ml)
[2023-12-17 18:57] LABS: WBC 0-2 wbc/hpf (0-5)
[2023-12-17] MEDS ORDERED: Ondansetron Hydrochloride 4 MG TAB SL ONE (19:35)
[2023-12-17] MEDS ORDERED: PRILOSEC20 M1 PO (20:35)
== END 2023-12-17 21:10 | disposition home or self-care (01) ==
LOC: ED 17:01
PROVIDERS: Internal Medicine
DX: T50.901A Poisoning by unspecified drugs, medicaments and biological substances, accidental (unintentional), initial encounter (principal); D64.9 Anemia, unspecified; F32.A Depression, unspecified; R10.2 Pelvic and perineal pain; F19.10 Other psychoactive substance abuse, uncomplicated; F17.210 Nicotine dependence, cigarettes, uncomplicated; Z98.51 Tubal ligation status; Z90.49 Acquired absence of other specified parts of digestive tract; Z98.890 Other specified postprocedural states; Z90.89 Acquired absence of other organs; Y92.009 Unspecified place in unspecified non-institutional (private) residence as the place of occurrence of the external cause

== ENCOUNTER → 2024-09-30 | Outpatient (CLI) | payer OTHER ==
[~2024-09-30] MED LIST changes: +PRILOSEC20 M1 PO
== END | disposition home or self-care (01) ==
LOC: US 09-27 07:30
PROVIDERS: ATTEND Orthopaedic Surgery
DX: M79.652 Pain in left thigh (principal)

== ENCOUNTER → 2024-11-18 | Outpatient (CLI) | payer OTHER ==
[~2024-11-18] MED LIST changes: +Technetium Tc 99M Medronate 1 KIT KIT IV SCH
== END | disposition home or self-care (01) ==
LOC: NM 00:06
PROVIDERS: ATTEND Orthopaedic Surgery
DX: M89.8X8 Other specified disorders of bone, other site (principal)

== ENCOUNTER → 2025-09-11 | Outpatient (CLI) | payer OTHER ==
[~2025-09-11] MED LIST changes: -Technetium Tc 99M Medronate 1 KIT KIT IV SCH
[2025-09-11 11:06] LABS: BASO # 0.0 10*3/uL (0.0-0.1); BASO % 0.3 % (0.0-1.0); EOS # 0.1 10*3/uL (0.0-0.4); EOS % 2.3 % (1.0-4.0); MEAN CELL VOLUME 87.2 fl (81.0-99.0); MEAN CORPUSCULAR HGB 29.6 pg (27.0-31.0); MEAN PLATELET VOLUME 10.2 fl (9.6-12.3); MONO # 0.3 10*3/uL (0.1-1.0); MONO % 5.4 % (3.0-9.0); NEUT # 4.0 10*3/uL (2.3-7.9); NEUT % 66.8 % (47.0-73.0); NUCLEATED RED BLOOD CELL 0.0 % (0.0-0.0); NUCLEATED RED BLOOD CELL 0.0 10*3/uL (0.0-0.0); PLATELET COUNT AUTOMATED 224 10*3/uL (130-400); RED CELL DISTRI WIDTH 12.1 % (0-14.5)
[2025-09-11 11:52] LABS: BUN 11 mg/dl (9-23); FREE T4 1.30 ng/dl (0.89-1.76); LDL CHOLESTEROL 105 mg/dL (9-159); SGPT/ALT 25 U/L (5-49)
[2025-09-11 12:08] LABS: VITAMIN D, 25-HYDROXY 48.7 ng/mL (30-100)
== END | disposition home or self-care (01) ==
LOC: LAB 01:05 → MAMMO 01:05
PROVIDERS: ATTEND Internal Medicine
DX: Z12.31 Encounter for screening mammogram for malignant neoplasm of breast (principal); F32.9 Major depressive disorder, single episode, unspecified; E55.9 Vitamin D deficiency, unspecified; E61.1 Iron deficiency; R92.313 Mammographic fatty tissue density, bilateral breasts; R92.1 Mammographic calcification found on diagnostic imaging of breast